=== PATIENT | male | born 1990 | race Caucasian/White ===

== ENCOUNTER 2019-09-23 01:12 | Day surgery (SDC) | payer OTHER, SELFPAY ==
[2019-09-20 15:14] VITALS: BMI 45.7
[2019-09-23 09:08] VITALS: BP 158/91; PULSE 107; RESP 20; TEMP 36.7; O2SAT 98
--- NOTE | 2019-09-23 09:24 | PM.IMHP ---
H&P: HPI History of Present Illness Chief complaint: rectal fissure, rectal pain Narrative: Bryant Sanchez is a 28 year old male presents today for colonoscopy. He reports 6 months of rectal burning, discomfort, and bright red rectal bleeding on the tissue with wiping. He saw Dr. Huang 12/2018 and had hemorrhoidal banding x 3 and evidence of anal fissure. He was given nifidepine and lidocaine, he noticed somewhat improvement. He reports he had a colonoscopy in 2018 but he is unsure, he denies any abnormalities or hx of polyps. He does struggle with constipation at baseline and takes miralax nightly, fiber and probiotic and helps somewhat. He has GERD, which is well controlled on omeprazole daily. He denies any nausea, vomiting, dysphagia, or odynophagia. Denies abnormal weight loss, fever or chills. Review of Systems Review of Systems: All systems reviewed & are unremarkable except as noted in HPI and below PMFSH Past Medical History Medical History (Updated 09/23/19 @ 09:31 by Montserrat Solis, HOUSEMAN) Asthma Chronic constipation Eczema Essential hypertension Fatty (change of) liver, not elsewhere classified Gastro-esophageal reflux History of anal fissures Mixed hyperlipidemia Obstructive sleep apnea (adult) (pediatric) Super obesity Type 2 diabetes mellitus with hyperglycemia Family History Family History (Updated 11/26/16 @ 15:34 by DOCTOR UNKNOWN) Mother Diabetes mellitus Family history of rheumatoid arthritis Family history of allergic disorder Father Hypertension Family history of colonic diverticulitis Other Family history of malignant neoplasm Family history of mental disorder Family history of pancreatic disease Social History Social History Smoking status: Never smoker Alcohol intake: never Meds Home Medications and Allergies Home Medications Medication Instructions Recorded Confirmed Type Benefiber Clear SF (dextrin) 2 tsp PO DAILY 09/20/19 09/20/19 History I B Clayton 1 cap/day PO DAILY 09/20/19 09/20/19 History albuterol sulfate [Proair 2 inh INHALATION Q4-6H PRN 09/20/19 09/23/19 History Digihaler] alogliptin 25 mg PO DAILY 09/20/19 09/20/19 History amitriptyline 10 mg PO HS 09/20/19 09/20/19 History amlodipine 5 mg PO DAILY 09/20/19 09/20/19 History benazepril 20 mg PO DAILY 09/20/19 09/20/19 History diphenhydramine HCl [Benadryl] 25 mg PO Q6H PRN 09/20/19 09/23/19 History triamcinolone acetonide 0.1 % TOPICAL DAILY 09/20/19 09/20/19 History Allergies Allergy/AdvReac Type Severity Reaction Status Date / Time Sulfa (Sulfonamide Allergy Intermediate RASH Verified 09/23/19 09:05 Antibiotics) Vital Signs Vital Signs - 24 hr 09/23/19 09:08 Temperature 36.7 C Pulse Rate 107 H Respiratory Rate 20 Blood Pressure 158/91 H Pulse Oximetry 98 Exam Const: General: cooperative, healthy appearing, comfortable, alert and awake Nutritional Appearance: average body habitus Orientation/consciousness: oriented to person, oriented to place, oriented to time and patient oriented x3 Limitations: no limitations HENMT: Head: normal to inspection and normocephalic Mouth: Yes Normal oral and palatal mucosa present and Yes moist mucous membranes Neck: Neck: normal visual inspection, supple and no JVD Carotids: no bruits Resp: Effort & Inspection: normal respiratory effort and no respiratory distress Auscultation: diminished lung sounds Cardio: Rate: regular rate Rhythm: regular rhythm Heart sounds: S1 normal heart sound present, S2 normal heart sound present, no gallops, no murmurs and no rubs GI: Inspection: Pannus present and obesity GI Palp: No abdominal tenderness and No No hepatosplenomegaly present Percussion: Yes normal to percussion Auscultation: normal bowel sounds Rectal Exam: deferred Skin: General skin exam: normal color Lesions: no lesions Rashes: no rashes Neuro: General: oriented to person, oriented to place, oriented to time, patient orient
[2019-09-23] MEDS: LACTATED RINGERS 1,000 ML 150 ML IV CONT (09:32)
[2019-09-23 09:34] LABS: Glucose Point of Care 148 (65-105)
--- NOTE | 2019-09-23 09:38 | WPDANESEPPF ---
Anes - Initial Pre Proc Eval Procedure: Operation Date: 09/23/19 09:30 Proposed Procedures p Colonoscopy - Loco Hernandez DO Date/Time: 09/23/19 09:38 Surgeon: Loco Hernandez DO Pre Op Diagnosis: rectal fissure, rectal pain Patient Data Age: 28 Gender: M Height: 5 ft 8 in Weight: 134.6 kg Last Vital Signs Temp 36.7 C 09/23/19 09:08 Pulse 107 H 09/23/19 09:08 Resp 20 09/23/19 09:08 BP 158/91 H 09/23/19 09:08 Pulse Ox 98 09/23/19 09:08 Allergies Allergy/AdvReac Type Severity Reaction Status Date / Time Sulfa (Sulfonamide Allergy Intermediate RASH Verified 09/23/19 09:05 Antibiotics) Home Medications Medication Instructions Recorded Confirmed Type Benefiber Clear SF (dextrin) 2 tsp PO DAILY 09/20/19 09/20/19 History I B Clayton 1 cap/day PO DAILY 09/20/19 09/20/19 History albuterol sulfate [Proair 2 inh INHALATION Q4-6H PRN 09/20/19 09/23/19 History Digihaler] alogliptin 25 mg PO DAILY 09/20/19 09/20/19 History amitriptyline 10 mg PO HS 09/20/19 09/20/19 History amlodipine 5 mg PO DAILY 09/20/19 09/20/19 History benazepril 20 mg PO DAILY 09/20/19 09/20/19 History diphenhydramine HCl [Benadryl] 25 mg PO Q6H PRN 09/20/19 09/23/19 History triamcinolone acetonide 0.1 % TOPICAL DAILY 09/20/19 09/20/19 History Laboratory Tests 09/23/19 09:30 POC Capillary Glucose 148 mg/dl H mg/dl (65-105) Patient hx anesthesia problems: none Family hx anesthesia problems: none PMFSH Past Medical History Medical History Asthma Chronic constipation Eczema Essential hypertension Fatty (change of) liver, not elsewhere classified Gastro-esophageal reflux History of anal fissures Mixed hyperlipidemia Obstructive sleep apnea (adult) (pediatric) Super obesity Type 2 diabetes mellitus with hyperglycemia Family History Family History Mother Diabetes mellitus Family history of rheumatoid arthritis Family history of allergic disorder Father Hypertension Family history of colonic diverticulitis Other Family history of malignant neoplasm Family history of mental disorder Family history of pancreatic disease Social History Social History Smoking status: Never smoker Alcohol intake: never Anes - Eval Final PreProcedure Day of Procedure 09/23/19 09:38 Patient weight: morbidly obese Heart: regular rate and rhythm Lungs: clear to auscultation Airway: Mallampati scale Neurological: alert and oriented Last oral intake: >/= 8 hours ASA classification: III Emergent: no Anesthetic plan: proceed Anesthesia type and monitoring: general GIVS Informed Consent: The patient's anesthetic plan and its attendant risks and benefits were discussed with the patient/family/POA. Questions were solicited and answers provided to the satisfaction of the patient/family/POA.
[2019-09-23 10:28] VITALS: BP 127/83; PULSE 94; RESP 20; O2SAT 98
[2019-09-23 10:38] VITALS: BP 133/90; PULSE 94; RESP 20; O2SAT 98
[2019-09-23 10:48] VITALS: BP 141/86; PULSE 93; RESP 20; O2SAT 98
== END 2019-09-23 11:15 | disposition home or self-care (01) ==
PROVIDERS: PCP Family Medicine; Visit Provider Internal Medicine Gastroenterology
PROC: 0DJD8ZZ Inspection of Lower Intestinal Tract, Via Natural or Artificial Opening Endoscopic (ICD-10-PCS; CPT 45378; principal; 2019-09-23 09:30)
DX: K60.0 Acute anal fissure (principal); K63.5 Polyp of colon; K64.8 Other hemorrhoids; K59.09 Other constipation; J45.909 Unspecified asthma, uncomplicated; I10 Essential (primary) hypertension; E11.9 Type 2 diabetes mellitus without complications; K21.9 Gastro-esophageal reflux disease without esophagitis; K76.0 Fatty (change of) liver, not elsewhere classified; E78.2 Mixed hyperlipidemia; G47.33 Obstructive sleep apnea (adult) (pediatric); E66.01 Morbid (severe) obesity due to excess calories; Z68.42 Body mass index [BMI] 45.0-49.9, adult
CPT/HCPCS: 45380; 88305; J2704; J7120

== ENCOUNTER 2020-01-31 11:26 | Outpatient (CLI) | payer OTHER, SELFPAY ==
[2020-01-31 12:03] LABS: Basophils Absolute Auto 0.05 K/mm3 (0.00-0.10); Basophils Percent Auto 0.7 % (0.0-1.0); Eosinophils Absolute Auto 0.26 K/mm3 (0.02-0.50); Eosinophils Percent Auto 3.4 % (1.0-6.0); Hematocrit 45.9 % (40.0-54.0); Hemoglobin 16.2 g/dL (14.0-18.0); Immature Granulocyte Absolute 0.05 K/mm3 (0.00-0.00); Immature Granulocyte Percent A 0.7 % (0.0-0.0); Lymphocytes Absolute Auto 1.81 K/mm3 (1.10-4.50); Mean Corpuscular HGB Conc 35.3 g/dL (32.0-36.0); Mean Corpuscular Hemoglobin 30.7 pg (27.0-31.0); Mean Corpuscular Volume 86.9 fL (78.0-102.0); Mean Platelet Volume 8.4 fl (8.7-11.0); Monocytes Absolute Auto 0.64 K/mm3 (0.10-0.90); Monocytes Percent Auto 8.5 % (2.0-11.0); Neutrophils Absolute Auto 4.7 K/mm3 (1.7-7.2); Neutrophils Percent Auto 62.7 % (50.0-70.0); Platelet Count Result 199 K/mm3 (150-420); Red Blood Count 5.28 M/mm3 (4.70-6.10); Red Cell Distribution Width 13.1 % (11.6-14.4); White Blood Count 7.5 K/mm3 (4.8-10.8)
[2020-01-31 12:12] LABS: Hemoglobin A1C 8.8 % (<5.7)
[2020-01-31 12:20] LABS: Creatinine Urine 157.28 mg/dL (40-278); Microalbumin Urine Random 4.8 mg/L
[2020-01-31 13:27] LABS: Alanine Aminotransferase 65 U/L (16-63); Alkaline Phosphatase 81 U/L (46-116); Anion Gap 10.9 mmol/L (7-16); Aspartate Amino Transferase 29 U/L (15-37); Bilirubin,Total 0.9 mg/dL (0.00-1.00); Blood Urea Nitrogen 12 mg/dL (7-18); Calcium 8.8 mg/dL (8.5-10.1); Carbon Dioxide 31 mmol/L (21-32); Chloride 99 mmol/L (98-108); Cholesterol 93 mg/dL (0-200); Estimated Glomerular Filt Rate > 60; Glucose 217 mg/dL (70-99); HDL Direct 27 mg/dL (40-60); LDL Cholesterol Calculated 4 mg/dL (<130); Osmolality Calculated 290 mOsm/kg (285-295); Potassium 3.9 mmol/L (3.5-5.1); Sodium 137 mmol/L (136-145); Thyroid Stimulating Hormone 2.89 uIU/mL (0.36-3.74); Total Protein 7.3 g/dL (6.4-8.2); Triglycerides 312 mg/dL (0-150); Vitamin B12 501 pg/mL (193-986)
[2020-02-02 19:58] LABS: Vitamin D 25 Hydroxy 18 ng/mL (30-100)
== END 2020-01-31 11:27 | disposition home or self-care (01) ==
PROVIDERS: PCP Family Medicine; Visit Provider Family Medicine
DX: K21.9 Gastro-esophageal reflux disease without esophagitis (principal); G47.33 Obstructive sleep apnea (adult) (pediatric); E11.65 Type 2 diabetes mellitus with hyperglycemia
CPT/HCPCS: 36415; 80053; 80061; 82043; 82306; 82607; 83036; 84443; 85025

== ENCOUNTER 2020-05-31 13:37 | Outpatient (CLI) | payer OTHER, SELFPAY ==
[2020-05-31 14:02] LABS: Basophils Absolute Auto 0.05 K/mm3 (0.00-0.10); Basophils Percent Auto 0.7 % (0.0-1.0); Eosinophils Absolute Auto 0.19 K/mm3 (0.02-0.50); Eosinophils Percent Auto 2.6 % (1.0-6.0); Hematocrit 50.9 % (40.0-54.0); Hemoglobin 17.1 g/dL (14.0-18.0); Immature Granulocyte Absolute 0.03 K/mm3 (0.00-0.00); Immature Granulocyte Percent A 0.4 % (0.0-0.0); Lymphocytes Absolute Auto 1.59 K/mm3 (1.10-4.50); Lymphocytes Percent Auto 21.9 % (18.0-42.0); Mean Corpuscular HGB Conc 33.6 g/dL (32.0-36.0); Mean Corpuscular Hemoglobin 29.7 pg (27.0-31.0); Mean Corpuscular Volume 88.4 fL (78.0-102.0); Mean Platelet Volume 8.1 fl (8.7-11.0); Monocytes Absolute Auto 0.57 K/mm3 (0.10-0.90); Monocytes Percent Auto 7.9 % (2.0-11.0); Neutrophils Absolute Auto 4.8 K/mm3 (1.7-7.2); Neutrophils Percent Auto 66.5 % (50.0-70.0); Platelet Count Result 207 K/mm3 (150-420); Red Blood Count 5.76 M/mm3 (4.70-6.10); Red Cell Distribution Width 12.8 % (11.6-14.4); White Blood Count 7.3 K/mm3 (4.8-10.8)
[2020-05-31 14:13] LABS: Creatinine Urine 169.54 mg/dL (40-278); Hemoglobin A1C 5.9 % (<5.7); MALB Creatinine Ratio 7.6 mg/g (0-30); Microalbumin Urine Random < 13.0 mg/L
[2020-05-31 15:04] LABS: Alanine Aminotransferase 51 U/L (16-63); Albumin Level 4.3 g/dL (3.4-5.0); Alkaline Phosphatase 76 U/L (46-116); Anion Gap 7 mmol/L (8-16); Aspartate Amino Transferase 17 U/L (15-37); Bilirubin,Total 0.9 mg/dL (0.00-1.00); Blood Urea Nitrogen 10 mg/dL (7-18); Calcium 8.9 mg/dL (8.5-10.1); Carbon Dioxide 32 mmol/L (21-32); Chloride 101 mmol/L (98-108); Cholesterol 135 mg/dL (0-200); Creatine Kinase 80 U/L (39-308); Estimated Glomerular Filt Rate > 60; Glucose 119 mg/dL (70-99); HDL Direct 29 mg/dL (40-60); LDL Cholesterol Calculated 67 mg/dL (<130); Magnesium 2.5 mg/dL (1.8-2.4); Osmolality Calculated 290 mOsm/kg (285-295); Sodium 140 mmol/L (136-145); Thyroid Stimulating Hormone 1.26 uIU/mL (0.36-3.74); Total Protein 7.6 g/dL (6.4-8.2); Triglycerides 193 mg/dL (0-150); Vitamin B12 478 pg/mL (193-986)
[2020-06-03 12:21] LABS: Vitamin D 25 Hydroxy 19 ng/mL (30-100)
== END 2020-05-31 13:38 | disposition home or self-care (01) ==
LOC: CHSLAB 13:50
PROVIDERS: PCP Family Medicine; Visit Provider Family Medicine
DX: R25.2 Cramp and spasm (principal); Z79.899 Other long term (current) drug therapy; E11.65 Type 2 diabetes mellitus with hyperglycemia; E78.2 Mixed hyperlipidemia; E66.9 Obesity, unspecified; K59.09 Other constipation
CPT/HCPCS: 36415; 80053; 80061; 82043; 82306; 82550; 82607; 83036; 83735; 84443; 85025

== ENCOUNTER 2020-11-11 14:15 | Outpatient (CLI) | payer OTHER, SELFPAY ==
[2020-11-11 14:43] LABS: MALB Creatinine Ratio 7.5 mg/g (0-30); Microalbumin Urine Random 16.8 mg/L
[2020-11-11 14:45] LABS: Hemoglobin A1C 5.5 % (<5.7)
[2020-11-11 15:30] LABS: Alanine Aminotransferase 53 U/L (16-63); Albumin Level 4.4 g/dL (3.4-5.0); Alkaline Phosphatase 71 U/L (46-116); Anion Gap 8 mmol/L (8-16); Aspartate Amino Transferase 21 U/L (15-37); Blood Urea Nitrogen 13 mg/dL (7-18); Calcium 8.6 mg/dL (8.5-10.1); Carbon Dioxide 31 mmol/L (21-32); Chloride 100 mmol/L (98-108); Cholesterol 140 mg/dL (0-200); Estimated Glomerular Filt Rate > 60; Glucose 110 mg/dL (70-99); HDL Direct 29 mg/dL (40-60); LDL Cholesterol Calculated 70 mg/dL (<130); Osmolality Calculated 289 mOsm/kg (285-295); Potassium 3.9 mmol/L (3.5-5.1); Sodium 139 mmol/L (136-145); Total Protein 8.1 g/dL (6.4-8.2); Triglycerides 204 mg/dL (0-150); Vitamin B12 533 pg/mL (193-986)
== END 2020-11-11 14:16 | disposition home or self-care (01) ==
LOC: CHSLAB 14:17
PROVIDERS: PCP Family Medicine; Visit Provider Family Medicine
DX: E11.65 Type 2 diabetes mellitus with hyperglycemia (principal); E78.2 Mixed hyperlipidemia; R89.9 Unspecified abnormal finding in specimens from other organs, systems and tissues; Z79.899 Other long term (current) drug therapy
CPT/HCPCS: 36415; 80053; 80061; 82043; 82607; 83036; 84443

== ENCOUNTER 2020-12-04 10:15 | Outpatient (CLI) | payer OTHER, SELFPAY | END 2020-12-04 10:16 | disposition home or self-care (01) | LOC: ANHCOVIDVC 10:15 | PROVIDERS: PCP Family Medicine | DX: Z23 Encounter for immunization (principal) | CPT/HCPCS: 0001A; 91300 ==

== ENCOUNTER 2020-12-26 10:15 | Outpatient (CLI) | payer OTHER, SELFPAY | END 2020-12-26 10:16 | disposition home or self-care (01) | LOC: ANHCOVIDVC 10:16 | PROVIDERS: PCP Family Medicine | DX: Z23 Encounter for immunization (principal) | CPT/HCPCS: 0002A; 91300 ==

== ENCOUNTER 2021-07-14 14:38 | Outpatient (CLI) | payer OTHER, SELFPAY ==
[2021-07-14 15:10] LABS: Basophils Absolute Auto 0.04 K/mm3 (0.00-0.10); Basophils Percent Auto 0.6 % (0.0-1.0); Eosinophils Absolute Auto 0.22 K/mm3 (0.02-0.50); Eosinophils Percent Auto 3.1 % (1.0-6.0); Hematocrit 50.8 % (40.0-54.0); Hemoglobin 17.9 g/dL (14.0-18.0); Immature Granulocyte Absolute 0.04 K/mm3 (0.00-0.00); Immature Granulocyte Percent A 0.6 % (0.0-0.0); Lymphocytes Absolute Auto 1.59 K/mm3 (1.10-4.50); Lymphocytes Percent Auto 22.2 % (18.0-42.0); Mean Corpuscular HGB Conc 35.2 g/dL (32.0-36.0); Mean Corpuscular Hemoglobin 31.1 pg (27.0-31.0); Mean Corpuscular Volume 88.3 fL (78.0-102.0); Mean Platelet Volume 8.4 fl (8.7-11.0); Monocytes Absolute Auto 0.65 K/mm3 (0.10-0.90); Monocytes Percent Auto 9.1 % (2.0-11.0); Neutrophils Absolute Auto 4.6 K/mm3 (1.7-7.2); Neutrophils Percent Auto 64.4 % (50.0-70.0); Platelet Count Result 199 K/mm3 (150-420); Red Blood Count 5.75 M/mm3 (4.70-6.10); Red Cell Distribution Width 13.1 % (11.6-14.4); White Blood Count 7.2 K/mm3 (4.8-10.8)
[2021-07-14 15:25] LABS: Alanine Aminotransferase 65 U/L (16-63); Albumin Level 4.2 g/dL (3.4-5.0); Alkaline Phosphatase 77 U/L (46-116); Anion Gap 11 mmol/L (8-16); Aspartate Amino Transferase 27 U/L (15-37); Blood Urea Nitrogen 11 mg/dL (7-18); Calcium 8.7 mg/dL (8.5-10.1); Carbon Dioxide 29 mmol/L (21-32); Chloride 100 mmol/L (98-108); Cholesterol 132 mg/dL (0-200); Estimated Glomerular Filt Rate > 60; Glucose 126 mg/dL (70-99); HDL Direct 30 mg/dL (40-60); LDL Cholesterol Calculated 64 mg/dL (<130); Osmolality Calculated 291 mOsm/kg (285-295); Potassium 4.2 mmol/L (3.5-5.1); Sodium 140 mmol/L (136-145); Total Protein 7.3 g/dL (6.4-8.2); Triglycerides 191 mg/dL (0-150)
[2021-07-14 16:25] LABS: MALB Creatinine Ratio 7.8 mg/g (0-30); Microalbumin Urine Random < 13.0 mg/L
== END 2021-07-14 14:39 | disposition home or self-care (01) ==
LOC: CHSLAB 14:40
PROVIDERS: PCP Family Medicine; Visit Provider Physician Assistant Medical
DX: E11.9 Type 2 diabetes mellitus without complications (principal); E11.65 Type 2 diabetes mellitus with hyperglycemia; E66.9 Obesity, unspecified; I10 Essential (primary) hypertension; E78.2 Mixed hyperlipidemia
CPT/HCPCS: 36415; 80053; 80061; 82043; 83036; 84443; 85025

== ENCOUNTER 2021-12-18 14:25 | Outpatient (CLI) | payer OTHER, SELFPAY ==
[2021-12-18 14:49] LABS: Hemoglobin A1C 6.1 % (<5.7)
[2021-12-18 14:55] LABS: Alanine Aminotransferase 54 U/L (16-63); Alkaline Phosphatase 72 U/L (46-116); Anion Gap 5 mmol/L (8-16); Aspartate Amino Transferase 24 U/L (15-37); Bilirubin,Total 0.9 mg/dL (0.00-1.00); Blood Urea Nitrogen 14 mg/dL (7-18); Calcium 8.7 mg/dL (8.5-10.1); Carbon Dioxide 31 mmol/L (21-32); Chloride 101 mmol/L (98-108); Cholesterol 119 mg/dL (0-200); Estimated Glomerular Filt Rate > 60; Glucose 136 mg/dL (70-99); HDL Direct 30 mg/dL (40-60); LDL Cholesterol Calculated 41 mg/dL (<130); Osmolality Calculated 286 mOsm/kg (285-295); Potassium 3.9 mmol/L (3.5-5.1); Sodium 137 mmol/L (136-145); Total Protein 7.5 g/dL (6.4-8.2); Triglycerides 240 mg/dL (0-150)
== END 2021-12-18 14:26 | disposition home or self-care (01) ==
LOC: CHSLAB 14:27
PROVIDERS: PCP Family Medicine; Visit Provider Family Medicine
DX: E11.65 Type 2 diabetes mellitus with hyperglycemia (principal); E66.9 Obesity, unspecified
CPT/HCPCS: 36415; 80053; 80061; 83036

== ENCOUNTER 2021-12-28 10:52 | Outpatient (CLI) | payer OTHER, SELFPAY ==
--- NOTE | ~2021-12-28 | US_ITS ---
EXAMINATION: US abdomen complete DATE: 12/28/2021 11:23 INDICATION: Hepatic steatosis. TECHNIQUE: Multiple grayscale and Doppler ultrasound images of the abdomen were obtained. COMPARISON: Ultrasound 04/23/2016 FINDINGS: There is splenomegaly measuring 16.5 cm. The visualized portions of the head, body, and ag l of the pancreas are normal. There is diffuse hepatic steatosis. No liver surface nodularity. There is normal flow in main portal vein. The kidneys are normal in size. The gallbladder is normal in size . No gallstones or gallbladder wall thickening. There is no sonographic Anna sign. The common duct is normal and measures 3 mm. The inferior vena cava is obscured by bowel gas. The aorta is normal in caliber. IMPRESSION: 1. Diffuse hepatic steatosis. 2. Moderate splenomegaly. Reviewed, dictated and finalized at location A.
== END 2021-12-28 10:53 | disposition home or self-care (01) ==
LOC: CHSIMG 10:55
PROVIDERS: PCP Family Medicine; Visit Provider Physician Assistant Medical
DX: K76.0 Fatty (change of) liver, not elsewhere classified (principal)
CPT/HCPCS: 76700

== ENCOUNTER 2022-01-10 16:40 | Outpatient (CLI) | payer OTHER, SELFPAY ==
[2022-01-10 16:55] LABS: Basophils Absolute Auto 0.05 K/mm3 (0.00-0.10); Basophils Percent Auto 0.7 % (0.0-1.0); Eosinophils Absolute Auto 0.27 K/mm3 (0.02-0.50); Eosinophils Percent Auto 3.7 % (1.0-6.0); Hematocrit 49.3 % (40.0-54.0); Immature Granulocyte Absolute 0.03 K/mm3 (0.00-0.00); Immature Granulocyte Percent A 0.4 % (0.0-0.0); Lymphocytes Percent Auto 21.7 % (18.0-42.0); Mean Corpuscular HGB Conc 34.5 g/dL (32.0-36.0); Mean Corpuscular Hemoglobin 31.4 pg (27.0-31.0); Mean Platelet Volume 8.5 fl (8.7-11.0); Monocytes Absolute Auto 0.66 K/mm3 (0.10-0.90); Monocytes Percent Auto 8.9 % (2.0-11.0); Neutrophils Absolute Auto 4.8 K/mm3 (1.7-7.2); Neutrophils Percent Auto 64.6 % (50.0-70.0); Nucleated Red Blood Cells Absolute Auto 0.02 K/mm3 (0.00-0.00); Nucleated Red Blood Cells Perc 0.3 % (0-0.0); Platelet Count Result 184 K/mm3 (150-420); Red Blood Count 5.42 M/mm3 (4.70-6.10); Red Cell Distribution Width 13.2 % (11.6-14.4); White Blood Count 7.4 K/mm3 (4.8-10.8)
[2022-01-15 12:16] LABS: EBV Nuclear Ab Antibody >600.00 U/mL (<18.00); EBV Nuclear Ab Interpretation Past; EBV Virus Capsid Ag IgG Ab >750.00 U/mL (<18.00); EBV Virus Capsid Ag IgM Ab <36.00 U/mL (<36.00)
[2022-02-13 12:09] LABS: Gliadin AB, IgG <1.0 U/mL (<15.0)
[2022-02-14 10:40] LABS: TTG IGA AB <1.0 U/mL (<15.0)
== END 2022-01-10 16:41 | disposition home or self-care (01) ==
LOC: CHSLAB 16:42
PROVIDERS: PCP Family Medicine; Visit Provider Family Medicine
DX: R16.1 Splenomegaly, not elsewhere classified (principal); J30.9 Allergic rhinitis, unspecified; K58.1 Irritable bowel syndrome with constipation
CPT/HCPCS: 36415; 83516; 85025; 86255; 86664; 86665

== ENCOUNTER 2022-04-17 14:56 | Outpatient (CLI) | payer OTHER, SELFPAY ==
--- NOTE | ~2022-04-17 | CT_ITS ---
EXAMINATION: CT abdomen pelvis w con DATE: 04/17/2022 15:34 INDICATION: Left lower quadrant abdominal pain TECHNIQUE: Computed tomography (CT) of the abdomen and pelvis was performed with 100 CC Omnipaque 350 intravenous contrast. Automated exposure control and iterative reconstruction technique were employe d. Exam dose: 1671.65 mGy-cm total exam DLP. COMPARISON: 12/28/2021 complete abdominal ultrasound examination FINDINGS: The lung bases are clear of infiltrate or consolidation. Normal heart size. No pericardial or pleural effusion. Diffuse hepatic steatosis. No hepatic space-occupying mass lesion. The gallbladder is unremarkable, w ithout wall thickening or pericholecystic fluid or fat stranding. No bile duct or pancreatic duct dil atation. No pancreatic mass lesion or calcification. There is mild splenomegaly, with vertical dimens ion of approximately 15.2 cm. Normal morphology of the adrenal glands. No renal mass lesion or urinary tract calculus or hydroureteronephrosis. The urinary bladder is unrem arkable. No bowel obstruction, bowel wall thickening, pneumatosis or intraperitoneal free air. Normal appendix . Normal caliber of the abdominal aorta. No intraperitoneal or retroperitoneal or pelvic mass lesion or adenopathy or ascites. Small fat-containing umbilical hernia. No suspicious osteolytic or osteoblastic lesions. IMPRESSION: Hepatic steatosis Splenomegaly Reviewed, dictated and finalized at [facility]. Reviewed, dictated and finalized at location B.
[2022-04-17 15:25] LABS: Estimated Glomerular Filt Rate > 60
== END 2022-04-17 14:57 | disposition home or self-care (01) ==
LOC: ANHIMG 15:02
PROVIDERS: PCP Family Medicine; Visit Provider Physician Assistant Medical
DX: R10.32 Left lower quadrant pain (principal); K76.0 Fatty (change of) liver, not elsewhere classified; R16.1 Splenomegaly, not elsewhere classified
CPT/HCPCS: 74177; Q9967

== ENCOUNTER 2022-06-27 15:05 | Outpatient (CLI) | payer OTHER, SELFPAY ==
[2022-07-05 19:09] LABS: Calprotectin, Stool 382 mcg/g
== END 2022-06-27 15:06 | disposition home or self-care (01) ==
LOC: ANHLAB 15:08
PROVIDERS: PCP Family Medicine; Visit Provider Family Medicine
DX: R19.4 Change in bowel habit (principal)
CPT/HCPCS: 83993

== ENCOUNTER 2022-12-05 14:36 | Outpatient (CLI) | payer OTHER, SELFPAY ==
[2022-12-05 14:58] LABS: Basophils Absolute Auto 0.04 K/mm3 (0.00-0.10); Basophils Percent Auto 0.6 % (0.0-1.0); Eosinophils Absolute Auto 0.24 K/mm3 (0.02-0.50); Eosinophils Percent Auto 3.3 % (1.0-6.0); Hemoglobin 16.9 g/dL (14.0-18.0); Immature Granulocyte Absolute 0.03 K/mm3 (0.00-0.00); Immature Granulocyte Percent A 0.4 % (0.0-0.0); Lymphocytes Absolute Auto 1.67 K/mm3 (1.10-4.50); Lymphocytes Percent Auto 23.1 % (18.0-42.0); Mean Corpuscular HGB Conc 35.2 g/dL (32.0-36.0); Mean Corpuscular Hemoglobin 31.2 pg (27.0-31.0); Mean Corpuscular Volume 88.7 fL (78.0-102.0); Mean Platelet Volume 8.2 fl (8.7-11.0); Monocytes Absolute Auto 0.68 K/mm3 (0.10-0.90); Monocytes Percent Auto 9.4 % (2.0-11.0); Neutrophils Absolute Auto 4.6 K/mm3 (1.7-7.2); Neutrophils Percent Auto 63.2 % (50.0-70.0); Platelet Count Result 186 K/mm3 (150-420); Red Blood Count 5.41 M/mm3 (4.70-6.10); Red Cell Distribution Width 13.2 % (11.6-14.4); White Blood Count 7.2 K/mm3 (4.8-10.8)
[2022-12-05 15:11] LABS: Hemoglobin A1C 6.8 % (<5.7)
[2022-12-05 16:09] LABS: Creatinine Urine 136.96 mg/dL (40-278); MALB Creatinine Ratio 9.4 mg/g (0-30); Microalbumin Urine Random < 13.0 mg/L
[2022-12-05 16:25] LABS: Alanine Aminotransferase 51 U/L (16-63); Albumin Level 4.1 g/dL (3.4-5.0); Alkaline Phosphatase 73 U/L (46-116); Anion Gap 10 mmol/L (8-16); Aspartate Amino Transferase 25 U/L (15-37); Bilirubin,Total 0.8 mg/dL (0.00-1.00); Blood Urea Nitrogen 12 mg/dL (7-18); Calcium 8.8 mg/dL (8.5-10.1); Carbon Dioxide 30 mmol/L (21-32); Chloride 102 mmol/L (98-108); Cholesterol 130 mg/dL (0-200); Estimated Glomerular Filt Rate > 60; Ferritin 110 ng/mL (26-388); Glucose 159 mg/dL (70-99); HDL Direct 30 mg/dL (40-60); LDL Cholesterol Calculated 36 mg/dL (<130); Osmolality Calculated 296 mOsm/kg (285-295); Potassium 4.1 mmol/L (3.5-5.1); Sodium 142 mmol/L (136-145); Total Protein 7.7 g/dL (6.4-8.2); Triglycerides 322 mg/dL (0-150); Vitamin B12 488 pg/mL (193-986)
[2022-12-11 13:41] LABS: Vitamin D 25 Hydroxy 26 ng/mL (30-100)
== END 2022-12-05 14:37 | disposition home or self-care (01) ==
LOC: CHSLAB 14:38
PROVIDERS: PCP Family Medicine; Visit Provider Family Medicine
DX: E11.9 Type 2 diabetes mellitus without complications (principal); Z79.899 Other long term (current) drug therapy; K21.9 Gastro-esophageal reflux disease without esophagitis
CPT/HCPCS: 36415; 80053; 80061; 82043; 82306; 82607; 82728; 83036; 85025

== ENCOUNTER 2022-12-31 15:00 | Outpatient (CLI) | payer OTHER, SELFPAY ==
--- NOTE | ~2022-12-31 | CT_ITS ---
EXAMINATION: CT sinus wo con DATE: 12/31/2022 15:46 INDICATION: Chronic sinusitis TECHNIQUE: Computed tomography (CT) of the paranasal sinuses was performed without intravenous contra st. The dose-length product was 256.54 mGy-cm. Automated exposure control and iterative reconstructio n technique were employed. COMPARISON: None FINDINGS: No significant mucosal thickening or air-fluid levels. No air-fluid levels. No significant nasal septal deviation. Mastoids are pneumatized. No depressed skull fractures. IMPRESSION: 1. No significant sinus disease. Reviewed, dictated and finalized at location L.
== END 2022-12-31 15:01 | disposition home or self-care (01) ==
LOC: CHSIMG 15:01
PROVIDERS: PCP Family Medicine; Visit Provider Otolaryngology
DX: J32.9 Chronic sinusitis, unspecified (principal); R09.82 Postnasal drip
CPT/HCPCS: 70486

== ENCOUNTER 2023-02-25 14:21 | Outpatient (CLI) | payer OTHER, SELFPAY ==
--- NOTE | ~2023-02-25 | US_ITS ---
EXAMINATION: US abdomen complete DATE: 02/25/2023 14:50 INDICATION: Hepatic steatosis TECHNIQUE: Multiple grayscale and Doppler ultrasound images of the abdomen were obtained. COMPARISON: 12/28/2021 FINDINGS: The head and body of the pancreas are normal. The pancreatic tail is obscured by bowel gas. The liver demonstrates increased echogenicity, heterogenous echotexture, and decreased through trans mission. No surface nodularity. Normal hepatopetal flow in the main portal vein. The gallbladder is n ormal with no abnormal wall thickening, pericholecystic fluid or stones. The normal common bile duct measures 4 mm. There was no sonographic Anna sign. The visualized portions of the aorta and inferio r vena cava are normal. There is chronic mild enlargement of the spleen which measures 14.1 cm. The right kidney measures 13. 6 x 5.2 x 5.4 cm. The left kidney measures 14.0 x 5.4 x 6.7 cm. The kidneys demonstrate normal parenc hymal echogenicity. There is no hydronephrosis. IMPRESSION: 1. Diffuse hepatic steatosis. 2. Chronic mild splenomegaly. Reviewed, dictated and finalized at location L.
== END 2023-02-25 14:22 | disposition home or self-care (01) ==
LOC: CHSIMG 14:26
PROVIDERS: PCP Family Medicine
DX: K76.0 Fatty (change of) liver, not elsewhere classified (principal); R16.1 Splenomegaly, not elsewhere classified
CPT/HCPCS: 76700

== ENCOUNTER 2023-04-02 17:39 | Outpatient (CLI) | payer OTHER, SELFPAY ==
[2023-04-07 14:21] LABS: H pylori Ag Stool Not Detected
== END 2023-04-02 17:40 | disposition home or self-care (01) ==
LOC: CHSLAB 17:43
PROVIDERS: PCP Family Medicine
DX: K21.9 Gastro-esophageal reflux disease without esophagitis (principal)
CPT/HCPCS: 87338

== ENCOUNTER 2023-04-28 14:08 | Outpatient (CLI) | payer OTHER, SELFPAY ==
--- NOTE | ~2023-04-28 | NM_ITS ---
EXAMINATION: NM hepatobiliary w pharm DATE: 04/28/2023 16:08 INDICATION: Gastroesophageal reflux disease. Irritable bowel. COMPARISON: CT abdomen and pelvis 04/17/2022 TECHNIQUE: 5.5 mCi Tc-99m mebrofenin (Choletec) was administered intravenously. Scintigraphic images of the abdomen were obtained for one hour. Then, 2.5 mcg sincalide (Kinevac) IV was administered, an d imaging was continued for 30 minutes. FINDINGS: There is normal clearance of radiotracer from the blood pool. There is homogeneous tracer u ptake by the liver. Activity progresses to the bowel and gallbladder. Gallbladder ejection fraction (GBEF) was 88%. Note that most patients with gallbladder dysfunction have GBEF < 35%, which overlaps with the broad normal range of 10-90%. IMPRESSION: 1. Normal hepatobiliary scintigraphy. Reviewed, dictated and finalized at location A.
== END 2023-04-28 14:09 | disposition home or self-care (01) ==
LOC: CHSIMG 14:10
PROVIDERS: PCP Family Medicine
DX: K21.9 Gastro-esophageal reflux disease without esophagitis (principal); K58.1 Irritable bowel syndrome with constipation
CPT/HCPCS: 78227; A9537; J2805

== ENCOUNTER 2023-07-26 15:14 | Outpatient (CLI) | payer OTHER, SELFPAY ==
[2023-07-26 15:50] LABS: Creatinine Urine 78.15 mg/dL (40-278); MALB Creatinine Ratio 16.6 mg/g (0-30); Microalbumin Urine Random < 13.0 mg/L
[2023-07-26 15:52] LABS: Hemoglobin A1C 7.6 % (<5.7)
[2023-07-26 16:27] LABS: Alanine Aminotransferase 51 U/L (16-63); Albumin Level 4.2 g/dL (3.4-5.0); Alkaline Phosphatase 74 U/L (46-116); Anion Gap 8 mmol/L (8-16); Aspartate Amino Transferase 19 U/L (15-37); Bilirubin,Total 0.8 mg/dL (0.00-1.00); Blood Urea Nitrogen 11 mg/dL (7-18); Calcium 8.8 mg/dL (8.5-10.1); Carbon Dioxide 30 mmol/L (21-32); Chloride 98 mmol/L (98-108); Cholesterol 143 mg/dL (0-200); Estimated Glomerular Filt Rate > 60; Glucose 192 mg/dL (70-99); HDL Direct 31 mg/dL (40-60); LDL Cholesterol Calculated 13 mg/dL (<130); Osmolality Calculated 286 mOsm/kg (285-295); Potassium 3.8 mmol/L (3.5-5.1); Sodium 136 mmol/L (136-145); Total Protein 7.1 g/dL (6.4-8.2); Triglycerides 495 mg/dL (0-150)
[2023-07-26 16:40] LABS: LDL Cholesterol Direct 56 mg/dL (0-130)
== END 2023-07-26 15:15 | disposition home or self-care (01) ==
PROVIDERS: PCP Family Medicine; Visit Provider Family Medicine
DX: E11.9 Type 2 diabetes mellitus without complications (principal)
CPT/HCPCS: 36415; 80053; 80061; 82043; 83036; 83721

== ENCOUNTER 2023-11-19 17:30 | Emergency (ER) | payer OTHER, SELFPAY ==
[2023-11-19 17:34] VITALS: BP 137/91; PULSE 67; RESP 18; TEMP 37; O2SAT 98
--- NOTE | 2023-11-19 17:38 | ED.MALEGU ---
HPI - Male Genitourinary General Chief complaint: Urogenital-Male Stated complaint: urogenital male Time Seen by Provider: 11/19/23 17:38 Source: patient Mode of arrival: ambulatory Limitations: no limitations History of Present Illness HPI Narrative: 32-year-old male with a history of obesity, TITO, fatty liver,hypertension, diabetes mellitus, dyslipidemia, asthma, eczema, with recent upper respiratory tract infection for which he was treated with doxycycline and prednisone presents to the ER with a 2 month history of -- right testicular pain. No history of trauma. -- Dysuria. No hematuria. He has a history of prostatitis. No abdominal pain. No nausea / vomiting. No chest pain or shortness of breath. MD Complaint: testicle pain Onset (ago): month(s) ( 2 months) Duration: intermittent Location: right testicle Radiation: penis Severity: mild Quality: aching Relieving factors: none Exacerbating factors: none Associated symptoms: Reports dysuria Related Data Sexually active: No Home Medications Medication Instructions Recorded Confirmed amitriptyline 10 mg tablet 10 mg PO HS 09/20/19 11/19/23 amlodipine 5 mg tablet 5 mg PO DAILY 11/19/23 11/19/23 cholecalciferol (vitamin D3) 250 500 mcg PO WEEKLY 11/19/23 11/19/23 mcg (10,000 unit) capsule linagliptin 5 mg tablet (Tradjenta) 5 mg PO DAILY 11/19/23 11/19/23 omeprazole 20 mg capsule,delayed 20 mg PO DAILY 11/19/23 11/19/23 release Allergies Allergy/AdvReac Type Severity Reaction Status Date / Time Sulfa (Sulfonamide Allergy Intermediate RASH Verified 11/19/23 17:45 Antibiotics) metformin AdvReac severe gi Verified 11/19/23 17:45 upset pitavastatin [From Livalo] AdvReac leg cramps Verified 11/19/23 17:45 pravastatin AdvReac muscle Verified 11/19/23 17:45 cramping, gi upset simvastatin AdvReac muscle Verified 11/19/23 17:45 cramping Review of Systems Review of Systems: All systems reviewed & are unremarkable except as noted in HPI and below Constitutional: Constitutional: Reports as per HPI Eyes: Eyes: Reports as per HPI ENT: Reports system reviewed and no additional complaints, except as documented Cardiovascular: Cardiovascular: Reports as per HPI and Reports no additional cardiovascular complaints Respiratory: Respiratory: Reports as per HPI and Reports no additional respiratory complaints Gastrointestinal: Gastrointestinal: Reports as per HPI and Reports no additional gastrointestinal complaints Genitourinary: Genitourinary: Reports dysuria Musculoskeletal: Musculoskeletal: Reports no additional musculoskeletal complaints and Reports as per HPI Integumentary/Breasts: Skin/Breast: Reports system reviewed and no additional complaints, except as docu and Reports as per HPI Neurologic: Reports system reviewed and no additional complaints, except as documented and Reports as per HPI Psychiatric: Psychiatric: Reports no additional psychiatric complaints and Reports as per HPI Endocrine: Endocrine: Reports no additional endocrine complaints and Reports as per HPI Hematologic/Lymphatic: Hematologic/Lymphatic: Reports no additional hematologic/lymphatic complaints and Reports as per HPI Allergic/Immunologic: Allergic/Immunologic: Reports no additional allergic/immunologic complaints and Reports as per HPI PMFSH Past Medical History Medical History Asthma Chronic constipation Eczema Essential hypertension Fatty (change of) liver, not elsewhere classified 7.11.23 liver us fatty liver, chronic splenomegaly Gastro-esophageal reflux History of anal fissures Mixed hyperlipidemia Obstructive sleep apnea (adult) (pediatric) Pilonidal cyst Plantar fascial fibromatosis Prostatitis, acute Surgical History Surgical History Hx of colonoscopy 2.6.20 hyperplastic polyp, acute anal fissure, internal hemmie
[2023-11-19 18:32] LABS: Hematocrit 42.9 % (40.0-54.0); Hemoglobin 14.9 g/dL (14.0-18.0); Mean Corpuscular HGB Conc 34.7 g/dL (32-36); Mean Corpuscular Hemoglobin 30.8 pg (27.0-31.0); Mean Corpuscular Volume 88.6 fL (78.0-102.0); Mean Platelet Volume 8.3 fl (8.7-11.0); Platelet Count Result 142 K/mm3 (150-420); Red Blood Count 4.84 M/mm3 (4.70-6.10); Red Cell Distribution Width 14.2 % (11.6-14.4)
[2023-11-19 18:44] LABS: Appearance Urine Clear (Clear); Bilirubin Urine Negative (Negative); Blood Urine Negative (Negative); Color Urine Yellow (Yellow); Glucose Urine UA 3+ (Negative); Ketones Urine Negative (Negative); Leukocyte Esterase Ur Negative LEU/UL (Negative); Nitrate Urine Negative (Negative); Protein Urine Negative (Negative); Urobilinogen Urine 0.2 mg/dL (0.2-1.0)
[2023-11-19 18:54] LABS: Alanine Aminotransferase 87 U/L (16-63); Albumin Level 3.9 g/dL (3.4-5.0); Alkaline Phosphatase 65 U/L (46-116); Anion Gap 10 mmol/L (4-12); Aspartate Amino Transferase 38 U/L (15-37); Bilirubin,Total 1.5 mg/dL (0.00-1.00); Blood Urea Nitrogen 11 mg/dL (7-18); Calcium 8.8 mg/dL (8.5-10.1); Carbon Dioxide 28 mmol/L (21-32); Chloride 101 mmol/L (98-108); Estimated CRCL calculation 172 ml/min; Estimated Glomerular Filt Rate > 60; Glucose 238 mg/dL (70-99); Lipase 61 U/L (16-77); Osmolality Calculated 295 mOsm/kg (285-295); Potassium 3.8 mmol/L (3.5-5.1); Sodium 139 mmol/L (136-145)
[2023-11-19 18:55] LABS: Add Urine Microscopic? YES; Bacteria Urine Trace /hpf; RBC Urine 0-2 /hpf (0-2); Squamous Epithelial Cell Urine Rare /hpf (Few); WBC Urine 0-3 /hpf (0-3)
[2023-11-19 18:57] LABS: Lactic Acid Reflex 1.6 mmol/L (0.4-2.0); Troponin I < 4.0 ng/L (0.00-60.4)
[2023-11-19 18:59] LABS: Neutrophils Percent Manual 53 % (46-73); Total Cells Counted 100
[2023-11-19 19:00] LABS: Band Neutrophils Percent 1 % (0-6); Basophils Percent Manual 0 % (0-1); Eosinophils Absolute Manual 0.12 K/mm3 (0.02-0.50); Eosinophils Percent Manual 2 % (1-6); Lymphocytes Percent Manual 35 % (18-44); Metamyelocytes Percent 1 %; Monocytes Absolute Manual 0.48 K/mm3 (0.1-0.90); Monocytes Percent Manual 8 % (3-9); Neutrophils Absolute Manual 3.24 K/mm3 (1.3-6.7); Platelet Estimate Adequate (Adequate)
[2023-11-19 19:01] LABS: Other Cell Type ATYPICAL LYMPHS
--- NOTE | 2023-11-19 19:09 | PC.NURSE ---
patient report received from BENJA Alexander for continuation of care by crosstie inspector.
--- NOTE | 2023-11-19 19:26 | PC.NURSE ---
Dr. Martinez at patient bedside for update and review of results and plan.
[2023-11-19 19:45] VITALS: BP 132/77; PULSE 98; RESP 18; TEMP 36.2
== END 2023-11-19 19:47 | disposition home or self-care (01) ==
PROVIDERS: Emergency Provider Internal Medicine Critical Care Medicine; PCP Family Medicine
DX: N50.811 Right testicular pain (principal); G89.29 Other chronic pain; E11.65 Type 2 diabetes mellitus with hyperglycemia; K76.0 Fatty (change of) liver, not elsewhere classified; I10 Essential (primary) hypertension; J45.909 Unspecified asthma, uncomplicated; K21.9 Gastro-esophageal reflux disease without esophagitis; E78.2 Mixed hyperlipidemia; E66.9 Obesity, unspecified; Z68.38 Body mass index [BMI] 38.0-38.9, adult; Z79.84 Long term (current) use of oral hypoglycemic drugs
CPT/HCPCS: 36415; 80053; 81001; 83605; 83690; 84484; 85025; 99284

== ENCOUNTER 2023-11-24 14:36 | Outpatient (CLI) | payer OTHER, SELFPAY ==
--- NOTE | ~2023-11-24 | US_ITS ---
Testicular ultrasound with doppler. Indication: Testicular pain. Technique: Real-time sonography the scrotum was performed. Color flow Doppler and Doppler spectral an alysis were performed. Findings: The testes are homogeneous in echotexture bilaterally. There is no evidence of an intrates ticular mass. The right testis measures 3.6 x 3.8 x 2.6 cm and the left 3.7 x 3.0 x 2.7 cm. There is color-flow seen to both testes. Arterial and venous spectral waveforms are seen in both testes. There is no sonographic evidence of torsion. The head of the epididymis is visualized bilaterally and is within normal limits. Minimal bilateral hydroceles present. Borderline right-sided varicocele Impression: No testicular mass or torsion. Minimal bilateral hydroceles. Borderline right-sided varicocele. Reviewed, dictated and finalized at [facility]. Impression: No testicular mass or torsion. Minimal bilateral hydroceles. Borderline right-sided varicocele.
== END 2023-11-24 14:37 | disposition home or self-care (01) ==
LOC: CHSIMG 14:37
PROVIDERS: PCP Family Medicine; Visit Provider Family Medicine
DX: N50.819 Testicular pain, unspecified (principal); N43.3 Hydrocele, unspecified; I86.1 Scrotal varices
CPT/HCPCS: 76870; 93976

== ENCOUNTER 2024-04-23 08:52 | Outpatient (NON) | payer OTHER, SELFPAY | END 2024-04-23 08:53 | disposition home or self-care (01) | LOC: ANHGOSHLAB 08:53 | PROVIDERS: PCP Family Medicine; Visit Provider Student in an Organized Health Care Education/Training Program | DX: R35.0 Frequency of micturition (principal) | CPT/HCPCS: 87086 ==

== ENCOUNTER 2024-04-23 14:21 | Outpatient (CLI) | payer OTHER, SELFPAY ==
[2024-04-23 16:50] LABS: Hemoglobin A1C 8.1 % (<5.7)
[2024-04-23 16:51] LABS: Anion Gap 12 mmol/L (4-12); Blood Urea Nitrogen 12 mg/dL (9-20); Calcium 8.9 mg/dL (8.4-10.2); Carbon Dioxide 28 mmol/L (22-30); Chloride 97 mmol/L (98-107); Estimated Glomerular Filt Rate > 60; Glucose 174 mg/dL (65-110); Osmolality Calculated 287 mOsm/kg (285-295); Sodium 137 mmol/L (137-145)
== END 2024-04-23 14:22 | disposition home or self-care (01) ==
LOC: CHSLAB 14:24
PROVIDERS: PCP Family Medicine; Visit Provider Student in an Organized Health Care Education/Training Program
DX: R81 Glycosuria (principal); E11.9 Type 2 diabetes mellitus without complications
CPT/HCPCS: 36415; 80048; 83036

== ENCOUNTER 2024-10-02 13:50 | Outpatient (CLI) | payer OTHER, SELFPAY ==
--- OUTSIDE RECORDS SUMMARY | 2024-10-02 13:53 | XMS_ITS | Patient Health Summary ---
Author Organization [facility] Address [address] [place] [address] Care Team Providers Care Radiation Physicist Name Role Phone Julio Pete MD Primary Care Provider [phone] Note from [facility],non-owned Affiliates and Associated Physician Practices is amultiple site organization consisting of ambulatory clinics and hospital sitesin [place], [place], [place] and [place]. This disclosure is being madepursuant to the Care Everywhere program and may not contain all information available regarding this patient. Last updated 18.[facility] Social History Tobacco Use Types Packs/Day Years Used Date Smoking Tobacco: Never Assessed Sex and Gender Information Value Date Recorded Sex Assigned at Not on file Gender Identity Not on file Sexual Orientation Not on file Procedures * GROSS + MICRO EXAM(Performed 03/01/1998) Results * GROSS + MICRO EXAM (03/01/1998 11:30 AM CDT) Result CASE NUMBER [id number] [facility] PATH REPORT Comment: ORDERING PHYSICIAN RYAN CORONEL SPECIMEN TYPE Ethmoid-Contents CLINICAL HISTORY The patient is a 7-year-old boy who underwent bilateral myringotomy, adenoidectomy, and functional endoscopic sinus surgery. GROSS DESCRIPTION The specimen labeled with the patient's name and ethmoid contents is received fresh for gross and microscopic examination and consists of multiple fragments of pink-cottrell soft tissue admixed with fragments of pink-cottrell bone. The specimens have an aggregate measurement of 3.5 x 2 x 0.3 cm. Egg Grader fragments from the soft tissue portion of the specimen are submitted in a cassette labeled A . (CT/hm) MICROSCOPIC DESCRIPTION 1 slide, H/E DIAGNOSIS DIAGNOSIS ETHMOID CONTENTS - UPPER RESPIRATORY TRACT MUCOSA. - CHRONIC INFLAMMATION. Government Affairs Director MARY GUZMAN PATHOLOGIST Bronson Merchant M.D. ELECTRONICALLY TERRENCE Bronson Merchant MISCELLANEOUS SAMPLES / Unknown 03/01/1998 11:30 AM CDT 03/01/1998 1:24 PM CDT Historical Provider LAB - PATHOLOGY/C YTOLOGY ORDERABLES [facility] PATH REPORT Care Teams Radiation Physicist Relationship Specialty Start Date End Date Julio Pete MD [address] [place] [phone] PCP - General 09/10/18
--- OUTSIDE RECORDS SUMMARY | 2024-10-02 13:53 | XMS_ITS | Encounter Summary ---
Author Organization [facility] Address [address] [place] [address] Phone Care Team Providers Care Net Developer Architect Name Role Phone Peace Pete MD Primary Care Provider [phone] Mague Bermudez APRN, RADIO AERIAL INSTALLER Unavailable Herminio Jj MD Unavailable Reason for Visit * Reason Comments Medication Refill Encounter Details Date Type Department Care Team (Late st Contact Info) Description 10/23/2022 Refill [facility] - Gastroenterology [facility] [address] [place] [phone] Vianney Sauer MD [address] [place] [address] Medication Refill Social History Tobacco Use Types Packs/Day Years Used Date Smoking Tobacco: Never Smokeless Tobacco: Never Alcohol Use Standard Drinks/Week Comments No 0 (1 standard drink = 0.6 oz pur e alcohol) Sexually Active Control Partners Comments Not Currently Sex and Gender Information Value Date Recorded Sex Assigned at Not on file Legal Sex Male 8:46 AM CDT Gender Identity Not on file Sexual Orientation Not on file documented as of this encounter Miscellaneous Notes * Telephone Encounter - Mona Hebert RN - 10/23/2022 10:12 AM THIN FILM TECHNICIAN Pharmacy requesting refill of: Requested Prescriptions Pending Prescriptions Disp Refills ??? amitriptyline (ELAVIL) 10 MG Tablet [Pharmacy Med Name: AMITRIPTYLINE HCL 10 MG TAB] 90 Tablet 0 Sig: TAKE 1 TABLET BY MOUTH NIGHTLY Last fill: 07/26/2022 Patients last OV with GI: 04/10/2022 Next Office Visit with GI: None scheduled. Medication failed protocol, it cannot be delegated. Amitriptyline order pended, please review. FILM TECHNICIAN documented in this encounter Plan of Treatment Not on file documented as of this encounter Visit Diagnoses Not on filedocumented in this encounter Care Teams Net Developer Architect Relationship Specialty Start Date End Date Peace Pete MD PCP - General Family Medicine 04/27/18 Mague Bermudez APRN, RADIO AERIAL INSTALLER [address] [place] [address] Nurse Practitioner Advanced Practice Nurse 02/14/23 Herminio Jj MD [address] [address] Consulting Physician Colon and Rectal Surgery 02/13/24 documented as of this encounter
--- OUTSIDE RECORDS SUMMARY | 2024-10-02 13:53 | XMS_ITS | Encounter Summary ---
Author Organization [facility] Address [address] [place] [address] Phone Care Team Providers Care Joy Loading Machine Operator Name Role Phone Peace Peet MD Primary Care Provider [phone] Mague Bermudez APRN, SUPERINTENDENT TRANSMISSION Unavailable Herminio Jj MD Unavailable Reason for Visit * Reason Comments Medication Refill Encounter Details Date Type Department Care Team (Late st Contact Info) Description 07/25/2022 Refill [facility] - Gastroenterology [facility] [address] [place] [phone] Vianney Sauer MD [address] [place] [address] Medication Refill Social History Tobacco Use Types [...] encounter Miscellaneous Notes * Telephone Encounter - Sugar Prabhakar RN - 07/26/2022 8:17 AM CST Pharmacy requesting refill of: Requested Prescriptions Pending Prescriptions Disp Refills ??? amitriptyline (ELAVIL) 10 MG Tablet [Pharmacy Med Name: AMITRIPTYLINE HCL 10 MG TAB] 90 Tablet 0 Sig: TAKE 1 TABLET BY MOUTH NIGHTLY Last fill: 02/07/22 Patients last OV with GI: 04/10/22 Next Office Visit with GI: N/a Refilll cannot be delegated. Refill pended. Please sign if you agree. NICAL PLANNER documented in this encounter Plan of Treatment Not on file documented as of this encounter Visit Diagnoses Not on filedocumented in this encounter Care Teams Joy Loading Machine Operator Relationship Specialty Start Date End Date Peace Pete MD PCP - General Family Medicine 04/27/18 Mague Bermudez APRN, SUPERINTENDENT TRANSMISSION [address] [place] [address] Nurse Practitioner Advanced Practice Nurse 02/14/23 Herminio Jj MD [address] [address] Consulting Physician Colon and Rectal Surgery 02/13/24 documented as of this encounter
--- OUTSIDE RECORDS SUMMARY | 2024-10-02 13:53 | XMS_ITS | Referral Summary ---
Author Organization [facility] Address [address] [place] [address] Care Team Providers Care Assistant Community Director Name Role Phone Julio Pete MD Primary Care Provider [phone]- [phone] Source Comments [facility],non-owned Affiliates and Associated Physician Practices is amultiple site organization consisting of ambulatory clinics and hospital sitesin [place], [place], [place] and [place]. This disclosure is being madepursuant to the Care Everywhere program and may not contain all information available regarding this patient. Last updated 18.[facility] Social History Tobacco Use Types Packs/Day Years Used Date Smoking Tobacco: Never Assessed Sex and Gender Information Value Date Recorded Sex Assigned at Not on file Gender Identity Not on file Sexual Orientation Not on file Plan of Treatment Not on file Care Teams Assistant Community Director Relationship Specialty Start Date End Date Julio Pete MD [address] [place] [id number] PCP - General 09/10/18
--- OUTSIDE RECORDS SUMMARY | 2024-10-02 13:53 | XMS_ITS | Encounter Summary ---
Author Organization [facility] Address [address] [place] [address] Phone Care Team Providers Care Communication Instructor Name Role Phone Peace Pete MD Primary Care Provider +1 [phone] Mague Bermudez APRN, WAFER CUTTER Unavailable Herminio Jj MD Unavailable Reason for Visit * Reason Comments Medication Refill Encounter Details Date Type Department Care Team (Late st Contact Info) Description 10/22/2023 Refill [facility] #[facility] [place] [id number] Mague Bermudez APRN, WAFER CUTTER [address] [place] [address] Medication Refill Social History Tobacco Use Types [...] Telephone Encounter - Mona Hebert RN - 10/23/2023 8:45 AM HI TEACHER Medication failed the protocol, provider to review and approve the medication order if appropriate. Requested Prescriptions Pending Prescriptions Disp Refills amitriptyline (ELAVIL) 10 MG Tablet [Pharmacy Med Name: AMITRIPTYLINE HCL 10 MG TAB] 90 Tablet 0 Sig: TAKE 1 TABLET BY MOUTH EVERY DAY AT NIGHT Not Delegated - Tricyclic Agents Protocol Failed - 10/22/2023 3:21 PM Failed - This refill cannot be delegated Passed - Visit with relevant provider in past 12 months or upcoming 90 days Recent Visits Date Type Provider Dept 04/01/23 Office Visit Mague Bermudez APRN, CNP [facility] 02/14/23 Office Visit Mague Bermudez APRN, CNP [facility] [place] Showing recent visits within past 365 days and meeting all other requirements Future Appointments No visits were found meeting these conditions. Showing future appointments within next 90 days and meeting all other requirements TEACHER documented in this encounter Plan of Treatment Not on file documented as of this encounter Visit Diagnoses Not on filedocumented in this encounter Care Teams Communication Instructor Relationship Specialty Start Date End Date Peace Pete MD PCP - General Family Medicine 04/27/18 Mague Bermudez APRN, JOSEPH [address] [place] [address] Nurse Practitioner Advanced Practice Nurse 02/14/23 Herminio Jj MD [address] [address] Consulting Physician Colon and Rectal Surgery 02/13/24 documented as of this encounter
--- OUTSIDE RECORDS SUMMARY | 2024-10-02 13:53 | XMS_ITS | Encounter Summary ---
Author Organization [facility] Address [address] [place] [address] Phone Care Team Providers Care Buff Wheel Fabricator Name Role Phone Peace Pete MD Primary Care Provider [phone] [phone] Mague Bermudez APRN, CHICKEN BUYER Unavailable Herminio Jj MD Unavailable Reason for Visit * Reason Comments Medication Refill Encounter Details Date Type Department Care Team (Late st Contact Info) Description 08/02/2023 Refill [facility] #2 [place] [phone] Mague Bermudez APRN, CHICKEN BUYER [address] [place] [address] Medication Refill Social History Tobacco Use Types [...] Telephone Encounter - Mona Hebert RN - 08/04/2023 6:40 PM NICKEL PLANT OPERATOR Medication failed the protocol, provider to review and approve the medication order if appropriate. Requested Prescriptions Pending Prescriptions Disp Refills amitriptyline (ELAVIL) 10 MG Tablet [Pharmacy Med Name: AMITRIPTYLINE HCL 10 MG TAB] 90 Tablet 0 Sig: TAKE 1 TABLET BY MOUTH EVERY DAY AT NIGHT Not Delegated - Tricyclic Agents Protocol Failed - 08/02/2023 9:06 AM Failed - This refill cannot be delegated Passed - Visit with relevant provider in past 12 months or upcoming 90 days Recent Visits Date Type Provider Dept 04/01/23 Office Visit Mague Bermudez APRN, CNP [facility] 02/14/23 Office Visit Mague Bermudez APRN, CNP [facility] Showing recent visits within past 365 days and meeting all other requirements Future Appointments No visits were found meeting these conditions. Showing future appointments within next 90 days and meeting all other requirements EL PLANT OPERATOR documented in this encounter Plan of Treatment Not on file documented as of this encounter Visit Diagnoses Not on filedocumented in this encounter Care Teams Buff Wheel Fabricator Relationship Specialty Start Date End Date Peace Pete MD PCP - General Family Medicine 04/27/18 Mague Bermudez APRN, JOSEPH [address] [place] [address] Nurse Practitioner Advanced Practice Nurse 02/14/23 Herminio Jj MD #[address] [address] Consulting Physician Colon and Rectal Surgery 02/13/24 documented as of this encounter
--- OUTSIDE RECORDS SUMMARY | 2024-10-02 13:53 | XMS_ITS | Clinical Summary ---
Author Organization [facility] Address [address] [address] Phone Care Team Providers Care Roller Helper Name Role Phone Peace Pete MD Primary Care Provider Mague Bermudez APRN, FOOD OR BAGGAGE HANDLING RAMPMAN Unavailable Herminio Jj MD Unavailable Allergies Active Allergy Reactions Criticality Noted Date Comments Sulfa Antibiotics Rash 04/27/2018 Medications benazepril (LOTENSIN) 20 MG Tablet Take by mouth. 08/09/20 17 Active albuterol 108 (90 Base) MCG/ACT Aerosol Solution take by inhalation. Active triamcinolone (KENALOG) 0.1 % Cream Apply. Active Wheat Dextrin (BENEFIBER PO) Take by mouth. Active diphenhydrAMINE (BENADRYL) 25 MG Capsule Take 25 mg by mouth every 6 hours as needed. Active Alogliptin Benzoate 25 MG Tablet 08/19/19 20 Active amLODIPine (NORVASC) 5 MG Tablet 08/17/20 19 Active JARDIANCE 10 MG Tablet 25 mg. 02/08/20 20 Active Polyethylene Glycol 3350 (MIRALAX PO) Take by mouth. Ac tive Multiple Vitamin (MULTI-VITAMIN PO) Take by mouth. Activ e Cholecalciferol (VITAMIN D-3 PO) Take by mouth. Activ e Coenzyme Q10 100 MG Capsule Take by mouth. Active COMPOUNDED MEDICATIONIndic ations:Rectal fissure Nifedipine .4 Lidocaine 3% hydorcortisone 2.5 % Compounded creme Use Tid PRN rectal pain 1 Each 2 08/29/19 22 Active VITAMIN E PO Take by mouth. Ac tive other by Other route. IV guard Active Tradjenta 5 MG Tablet Take 5 mg by mouth every morning. 03/13/20 23 Active dicyclomine (BENTYL) 20 MG Tablet Take 1 Tablet by mouth 2 times daily. 180 Tablet 1 05/30/20 23 Active Additional Information Patient not taking.Reported on 01/14/2024 omeprazole (PriLOSEC) 20 MG CAPSULE DELAYED RELEASEIndicati ons:Gastroesoph ageal reflux disease, unspecified whether esophagitis present TAKE 2 CAPSULES BY MOUTH EVERY DAY 180 Capsule 3 10/03/19 24 Active Hydrocortisone, Perianal, 2.5 % Cream APPLY RECTALLY DAILY NEEDED FOR HEMORRHOIDS 01/07/20 24 Active hydrocortisone (ANUSOL-HC) 25 MG SuppositoryIndi cations:Hemorrh oids, unspecified hemorrhoid type 25 mg by Rectal route every 12 hours. 30 Suppository 06/18/20 24 Active amitriptyline (ELAVIL) 10 MG Tablet TAKE 1 TABLET BY MOUTH EVERY DAY AT NIGHT 90 Tablet 07/14/20 24 Active Active Problems Problem Noted Date Diagnosed Date Hemorrhoids 09/06/2020 Rectal fissure 02/28/2020 Irritable bowel syndrome with constipation 08/20 Overview (02/28/2020): Last Assessment & Plan: [place]-wilbur helped mostly for his constipation but has been taking once daily, recommend to increase up to 3 times daily as needed Add bentyl prn He could not afford linzess rtc 6-8 months Encounters Date Type Department Care Team Description 07/14/2024 Refill [facility] - Gastroenter[facility] [address] [place] [address] Mague Bermudez, HEAD GIRLS GOLF COACH, FOOD OR BAGGAGE HANDLING RAMPMAN Medication Refill from Last 3 Months Immunizations Immunization Administration Dates Next Due Influenza Vaccine, Quadrivalent, PF 03/2021,06/15/2020,06/14/2020,05/19,08/12/2018 Pneumococcal conjugate PCV20 , polysaccharide [id number] conjugate, adjuvant, PF 03/10/2022 Td Vaccine (preservative free) 03/10/2022 Family History Medical History Relation Name Comments No Known Problems Brother Hypertension Father Other-comment Father sleep apnea Diabetes Mother Rheumatoid Arthritis Mother Leukemia/Lymphoma Paternal Grandfather Relation Name Status Comments Brother Alive Father Alive Mother Alive Paternal Grandfather Social History Tobacco Use Types Packs/Day Years Used Date Smoking Tobacco: Never Smokeless Tobacco: Never Tobacco Cessation:Counseling Given: Not Answered Alcohol Use Standard Drinks/Week Comments No 0 (1 standard drink = 0.6 oz pur e alcohol) Sexually Active Control Partners Comments Not Currently Sex and Gender Information Value Date Recorded Sex Assigned at Not on file Legal Sex Male 8:46 AM CDT Gender Identity Not on file Sexual Orientation Not on file Last Filed Vital Signs Vital Sign Reading Time Taken Comments Blood Pressure 158/58 02/25/2024 1:56 PM CDT Pulse 110 02/25/2024 1:56 PM CDT Temperature 36.4 C (97.6 F) 02/25/2024 1:56 PM CDT Respiratory Rate 16 02/25/2024 1:56 PM CDT Oxygen Saturation 98% 02/25/2024 1:56 PM CDT Inhaled Oxygen Concentration - - Weight 122.9 kg (271 lb) 02/25/2024 1:56 PM CDT Height 177.8 cm (5' 10 ) 02/25/2024 1:56 PM CDT Body Mass Index 38.88 02/25/2024 1:56 PM CDT Plan of Treatment Health Maintenance Due Date Last Done Comments Hepatitis C Virus (HCV) Screening 1988 TdaP Immunization 1988 Hepatitis B Immunization (1 of 3 - 19+ 3-dose series) 12/15/2007 Influenza Immunization (#1) 04/18/202407/18, 07/19/2022, 06/25/2021, Additional history exists SARS-COV-2 Immunization ( season) 2024 08/02/2023, 12/22/2021, 12/26/2020, Additional history exists Colonoscopy High Risk 09/23/2029 09/23/2019 Colorectal Cancer Screening 09/23/2029 Colonoscopy 2033 09/23/2019 Respiratory Syncytial Virus (RSV) Immunization (Adult) (1 - 1-dose 75+ series) 12/15/2063 DTaP/Tdap/Td Immunization Discontinued 03/10/2022 Pneumococcal Immunization Combined Aged Out 03/10/2022 No longer eligible based on patient's age to complete this topic Meningococcal Immunization (ACWY) Aged Out No longer eligible based on patient's age to complete this topic Rotavirus Immunization Aged Out No lo nger eligible based on patient's age to complete this topic Procedures Procedure Name Priority Date/Time Associated Diagnosis Comments COLONOSCOPY Routine 09/23/2019 from Last 3 Months or Most Recently Relevant to Health Maintenance Results * COLONOSCOPY (09/23/2019) Loco Hernandez DO PROCEDURE/MINOR SURGICAL ORDERA BLES Final Result from Last 3 Months or Most Recently Relevant to Health Maintenance Insurance MEDICAID [place] Care Teams Roller Helper Relationship Specialty Start Date End Date Peace Pete MD PCP - General Family Medicine 04/27/18 Mague Bermudez APRN, FOOD OR BAGGAGE HANDLING RAMPMAN [address] [place] [address] Nurse Practitioner Advanced Practice Nurse 02/14/23 Herminio Jj MD [address]2 [place] [address] Consulting Physician Colon and Rectal Surgery 02/13/24
--- OUTSIDE RECORDS SUMMARY | 2024-10-02 13:53 | XMS_ITS | Encounter Summary ---
Author Organization [facility] Address [address] [place] [address] Phone Care Team Providers Care Thermocouple Tester Name Role Phone Peace Pete MD Primary Care Provider +1 [phone] Mague Bermudez APRN, TEST CARRIER Unavailable Herminio Jj MD Unavailable Reason for Visit * Reason Comments Medication Refill Encounter Details Date Type Department Care Team (Late st Contact Info) Description 01/23/2023 Refill [facility] [address]2 [place] [phone] Vianney Sauer MD [address]2 [place] [address] Medication Refill Social History Tobacco Use Types [...] Telephone Encounter - Mona Hebert RN - 01/29/2023 3:20 PM CDT Patient calling and checking on amitriptyline refill request. Order pended, please review. Patient made an appt for 02/14/2023. * Telephone Encounter - Sugar Prabhakar RN - 01/23/2023 8:17 AM CDT Medication failed the protocol, provider to review and approve the medication order if appropriate. Requested Prescriptions Pending Prescriptions Disp Refills amitriptyline (ELAVIL) 10 MG Tablet [Pharmacy Med Name: AMITRIPTYLINE HCL 10 MG TAB] 90 Tablet 0 Sig: TAKE 1 TABLET BY MOUTH NIGHTLY Not Delegated - Tricyclic Agents Protocol Failed - 01/23/2023 8:13 AM Failed - This refill cannot be delegated Passed - Visit with relevant provider in past 12 months or upcoming 90 days Recent Visits Date Type Provider Dept 04/10/22 Office Visit Naila Courtney Gabbi, PAC [facility] Showing recent visits within past 365 days and meeting all other requirements Future Appointments No visits were found meeting these conditions. Showing future appointments within next 90 days and meeting all other requirements documented in this encounter Plan of Treatment Not on file documented as of this encounter Visit Diagnoses Not on filedocumented in this encounter Care Teams Thermocouple Tester Relationship Specialty Start Date End Date Peace Pete MD PCP - General Family Medicine 04/27/18 Mague Bermudez APRN, TEST CARRIER [address] [place] [address] Nurse Practitioner Advanced Practice Nurse 02/14/23 Herminio Jj MD #[address] [address] Consulting Physician Colon and Rectal Surgery 02/13/24 documented as of this encounter
--- OUTSIDE RECORDS SUMMARY | 2024-10-02 13:53 | XMS_ITS | Encounter Summary ---
Author Organization [facility] Address [address] [place] [address] Phone Care Team Providers Care Hatchery Employee Name Role Phone Peace Pete MD Primary Care Provider +1 [phone] Mague Bermudez APRN, HEALTH POLICY MANAGER Unavailable Herminio Jj MD Unavailable Reason for Visit * Reason Comments Medication Refill Encounter Details Date Type Department Care Team (Late st Contact Info) Description 05/07/2022 Refill [facility] - [facility] #2 [place] [phone] Vianney Sauer MD [address] [place] [address] Medication Refill Social History Tobacco Use Types [...] on file Sexual Orientation Not on file COVID-19 Exposure Response Date Recorded In the last 10 days, have yo u been in contact with someone who was confirmed or suspected to have Coronavirus/COVID-19? No / Unsure 04/10/2022 2:18 PM CDT documented as of this encounter Miscellaneous Notes * Telephone Encounter - Mona Hebert RN - 05/07/2022 12:08 PM CDT Pharmacy requesting refill of: Requested Prescriptions Pending Prescriptions Disp Refills ??? amitriptyline (ELAVIL) 10 MG Tablet [Pharmacy Med Name: AMITRIPTYLINE HCL 10 MG TAB] 90 Tablet 0 Sig: TAKE 1 TABLET BY MOUTH NIGHTLY Last fill: 02/08/2022 Patients last OV with GI: 04/10/2022 Next Office Visit with GI: None scheduled. Medication cannot be delegated. Amitriptyline order pended, please review. documented in this encounter Plan of Treatment Not on file documented as of this encounter Visit Diagnoses Not on filedocumented in this encounter Care Teams Hatchery Employee Relationship Specialty Start Date End Date Peace Pete MD PCP - General Family Medicine 04/27/18 Mague Bermudez APRN, JOSEPH [address] [place] [address] Nurse Practitioner Advanced Practice Nurse 02/14/23 Herminio Jj MD #[address] [address] Consulting Physician Colon and Rectal Surgery 02/13/24 documented as of this encounter
--- OUTSIDE RECORDS SUMMARY | 2024-10-02 13:53 | XMS_ITS | Clinical Summary ---
Author Organization [facility] Address [address] [place] [address] Care Team Providers Care Log Manager Name Role Phone Julio Pete MD Primary Care Provider [phone]- [phone] Source Comments [facility] [employer],non-owned Affiliates and Associated Physician Practices is amultiple site organization consisting of ambulatory clinics and hospital sitesin [place], [place], [place] and [place]. This disclosure is being madepursuant to the Care Everywhere program and may not contain all information available regarding this patient. Last updated 18.[facility] Social History Tobacco Use Types Packs/Day Years Used Date Smoking Tobacco: Never Assessed Sex and Gender Information Value Date Recorded Sex Assigned at Not on file Gender Identity Not on file Sexual Orientation Not on file Plan of Treatment Health Maintenance Due Date Last Done Comments HIV SCREENING 12/15/2003 HEPATITIS C SCREENING 12/10/2006 DTAP/TDAP/TD VACCINES (1 - Tdap) 12/15/2007 HEPATITIS B VACCINE (1 of 3 - 19+ 3-dose series) 12/15/2007 COVID-19 VACCINE ( - 2023-2 5 season) 2024 INFLUENZA VACCINE (#1) 2024 DEPRESSION SCREENING 08/18/2024 ZOSTER VACCINE (1 of 2) 2038 HIB VACCINE Aged Out No longer eligi ble based on patient's age to complete this topic HPV VACCINE Aged Out No longer eligi ble based on patient's age to complete this topic MENINGOCOCCAL (Group B) VACCINE Aged Out No longer eligible based on patient's age to complete this topic MENINGOCOCCAL VACCINE Aged Out No randy spring eligible based on patient's age to complete this topic PNEUMOCOCCAL VACCINE Aged Out No long er eligible based on patient's age to complete this topic Care Teams Log Manager Relationship Specialty Start Date End Date Julio Pete MD [address] [place] [address] PCP - General 09/10/18
--- OUTSIDE RECORDS SUMMARY | 2024-10-02 13:53 | XMS_ITS | Encounter Summary ---
Author Organization [facility] Address [address] [place] [address] Phone Care Team Providers Care Larriman Helper Name Role Phone Peace Pete MD Primary Care Provider +1 [phone] Mague Bermudez APRN, SIDE DOOR WORKER Unavailable Herminio Jj MD Unavailable Reason for Visit * Reason Comments Medication Refill Encounter Details Date Type Department Care Team (Late st Contact Info) Description 09/29/2023 Refill [facility] [address]2 [place] [phone] Mague Bermudez APRN, SIDE DOOR WORKER [address] [place] [address] Medication Refill Social History Tobacco Use Types [...] Telephone Encounter - Mona Hebert RN - 10/02/2023 4:07 PM FANCY STITCHER Spoke with patient, he is no longer taking pantoprazole and famotidine. He is asking for a refill of the omeprazole. Order pended, please review pended order. Y STITCHER * Telephone Encounter - Mona Hebert RN - 10/02/2023 8:58 AM FANCY STITCHER Left message to call back. Pantoprazole order noted to be placed by Ferny Bermudez NP on 04/01/2023. Y STITCHER * Telephone Encounter - Mona Hebert RN - 10/02/2023 8:54 AM FANCY STITCHER Pharmacy requesting refill of: Requested Prescriptions Pending Prescriptions Disp Refills ??? omeprazole (PriLOSEC) 20 MG CAPSULE DELAYED RELEASE [Pharmacy Med Name: OMEPRAZOLE DR 20 MG CAPSULE] 60 Capsule 5 Sig: TAKE 2 CAPSULES BY MOUTH EVERY DAY Last fill: Name from pharmacy: OMEPRAZOLE DR 20 MG CAPSULE Will file in chart as: omeprazole (PriLOSEC) 20 MG CAPSULE DELAYED RELEASE The original prescription was discontinued on 04/01/2023 by Mague Bermudez APRN, JOSEPH for thefollowing reason: Alternate therapy. Renewing this prescription may not be appropriate Patients last OV with GI: 04/01/2023 Next Office Visit with GI: None scheduled, recall noted. Y STITCHER documented in this encounter Plan of Treatment Not on file documented as of this encounter Visit Diagnoses Diagnosis Gastroesophageal reflux disease, unspecified whether esophagitis present documented in this encounter Care Teams Larriman Helper Relationship Specialty Start Date End Date Peace Pete MD PCP - General Family Medicine 04/27/18 Mague Bermudez APRN, SIDE DOOR WORKER [address] [place] [address] Nurse Practitioner Advanced Practice Nurse 02/14/23 Herminio Jj MD #[address] [address] Consulting Physician Colon and Rectal Surgery 02/13/24 documented as of this encounter
--- OUTSIDE RECORDS SUMMARY | 2024-10-02 13:53 | XMS_ITS | Clinical Summary ---
Author Organization [facility] Address [address] [place] [address] Care Team Providers Care Rural Carrier Associate Name Role Phone Peace Pete MD Primary Care Provider + Allergies Active Allergy Reactions Criticality Noted Date Comments Sulfa (Sulfonamide Antibiotics) Rash Medium 01/17 Medications cetirizine (ZyrTEC) 10 mg tablet Take 10 mg by mouth daily. Active omeprazole (PriLOSEC) 20 mg capsule Take 20 mg by mouth daily. Active amLODIPine besylate, bulk, 100 % powder 5 mg daily. Activ e empagliflozin-li nagliptin 10-5 mg tablet Take by mouth daily. Active BENAZEPRIL HCL, BULK, MISC 20 mg daily. Active albuterol HFA (PROVENTIL HFA,VENTOLIN HFA) 90 mcg/actuation inhaler Inhale 2 puffs every 4 (four) hours as needed for wheezing. Active triamcinolone (KENALOG) 0.1 % cream Apply topically 2 (two) times a day. Active metoclopramide (REGLAN) 5 mg tablet Take 1 tablet (5 mg total) by mouth 2 (two) times a day before breakfast and dinner. 60 tablet 6 7 Active Additional Information Patient not taking.Reported on 08/20/2017 amLODIPine (NORVASC) 5 mg tablet Take 5 mg by mouth daily. 2 7 Active benazepril (LOTENSIN) 20 mg tablet Take 20 mg by mouth daily. 2 7 Active TRADJENTA 5 mg tabletIndication s:type 2 diabetes mellitus Take 5 mg by mouth daily. 5 7 Active dicyclomine (BENTYL) 10 mg capsuleIndicatio ns:Generalized abdominal pain,Burping Take 1 capsule (10 mg total) by mouth 4 (four) times a day as needed (pain/gas). 90 capsule 5 8 Active amitriptyline (ELAVIL) 25 mg tabletIndication s:Irritable bowel syndrome, unspecified type Take 1 tablet (25 mg total) by mouth nightly. 30 tablet 4 8 Active Active Problems Problem Noted Date Diagnosed Date Generalized abdominal pain 08/20/2017 Burping 08/20/2017 Assessment & Plan (08/20/2017 11:27 AM SCOURING MACHINE OPERATOR): Will given flagyl as empiric treatment for possible SIBO but most likely functional component Will add also bentyl as needed Irritable bowel syndrome 08/20/2017 Assessment & Plan (08/20/2017 11:29 AM SCOURING MACHINE OPERATOR): Dorinda helped mostly for his constipation but has been taking once daily, recommend to increase up to 3 times daily as needed Add bentyl prn He could not afford linzess rtc 6-8 months Morbid obesity due to excess calories 08/20/2017 Assessment & Plan (08/20/2017 11:33 AM SCOURING MACHINE OPERATOR): Encourage to lose weight Surgical History Surgery Date Site/Laterality Comments SINUS SURGERY Medical History Medical History Date Comments Anxiety Diabetes mellitus (HCC) Hypertension Family History Medical History Relation Name Comments Hypertension Father Diabetes Mother Rheumatologic disease Mother Relation Name Status Comments Father Alive Mother Alive Social History Tobacco Use Types Packs/Day Years Used Date Smoking Tobacco: Never Smokeless Tobacco: Never Alcohol Use Standard Drinks/Week Comments No 0 (1 standard drink = 0.6 oz pur e alcohol) Personal Safety Answer Date Recorded Getting School Help Needed Not on file 11/01 Sex and Gender Information Value Date Recorded Sex Assigned at Not on file Legal Sex Male 3:17 AM SCOURING MACHINE OPERATOR Gender Identity Not on file Sexual Orientation Not on file Obstetrics History Last Filed Vital Signs Vital Sign Reading Time Taken Comments Blood Pressure 122/68 08/20/2017 11:02 AM SCOURING MACHINE OPERATOR Pulse 95 08/20/2017 11:02 AM SCOURING MACHINE OPERATOR Temperature 37 C (98.6 F) 08/20/2017 11:02 AM SCOURING MACHINE OPERATOR Respiratory Rate - - Oxygen Saturation - - Inhaled Oxygen Concentration - - Weight 140.2 kg (309 lb) 08/20/2017 11:02 AM SCOURING MACHINE OPERATOR Height 175.3 cm (5' 9 ) 08/20/2017 11:02 AM SCOURING MACHINE OPERATOR Body Mass Index 45.63 08/20/2017 11:02 AM SCOURING MACHINE OPERATOR Plan of Treatment Not on file Insurance IDPA Care Teams Rural Carrier Associate Relationship Specialty Start Date End Date Peace Pete MD PCP - General 12/11/16
--- OUTSIDE RECORDS SUMMARY | 2024-10-02 13:53 | XMS_ITS | Referral Summary ---
Author Organization [facility] Address [address] [place] [address] Care Team Providers Care Correspondence School Teacher Name Role Phone Peace Pete MD Primary [...] 08/20/2017 Assessment & Plan (08/20/2017 11:27 AM ACCOUNTS PAYABLE TECHNICIAN): Will given flagyl as empiric treatment for possible SIBO but most likely functional component Will add also bentyl as needed Irritable bowel syndrome 08/20/2017 Assessment & Plan (08/20/2017 11:29 AM ACCOUNTS PAYABLE TECHNICIAN): Dorinda helped mostly for his constipation but has been taking once daily, recommend to increase up to 3 times daily as needed Add bentyl prn He could not afford linzess rtc 6-8 months Morbid obesity due to excess calories 08/20/2017 Assessment & Plan (08/20/2017 11:33 AM ACCOUNTS PAYABLE TECHNICIAN): Encourage to lose weight Social History Tobacco Use Types Packs/Day Years Used Date Smoking Tobacco: Never Smokeless Tobacco: Never Alcohol Use Standard Drinks/Week Comments No 0 (1 standard drink = 0.6 oz pur e alcohol) Personal Safety Answer Date Recorded Getting School Help Needed Not on file 11/01 Sex and Gender Information Value Date Recorded Sex Assigned at Not on file Legal Sex Male 3:17 AM ACCOUNTS PAYABLE TECHNICIAN Gender Identity Not on file Sexual Orientation Not on file Last Filed Vital Signs Vital Sign Reading Time Taken Comments Blood Pressure 122/68 08/20/2017 11:02 AM ACCOUNTS PAYABLE TECHNICIAN Pulse 95 08/20/2017 11:02 AM ACCOUNTS PAYABLE TECHNICIAN Temperature 37 C (98.6 F) 08/20/2017 11:02 AM ACCOUNTS PAYABLE TECHNICIAN Respiratory Rate - - Oxygen Saturation - - Inhaled Oxygen Concentration - - Weight 140.2 kg (309 lb) 08/20/2017 11:02 AM ACCOUNTS PAYABLE TECHNICIAN Height 175.3 cm (5' 9 ) 08/20/2017 11:02 AM ACCOUNTS PAYABLE TECHNICIAN Body Mass Index 45.63 08/20/2017 11:02 AM ACCOUNTS PAYABLE TECHNICIAN Plan of Treatment Not on file Insurance IDPA Care Teams Correspondence School Teacher Relationship Specialty Start Date End Date Peace Pete MD PCP - General 12/11/16
--- OUTSIDE RECORDS SUMMARY | 2024-10-02 13:53 | XMS_ITS | Encounter Summary ---
Author Organization [facility] Address [address] [place] [address] Phone Care Team Providers Care Rustic Terrazzo Setter Name Role Phone Peace Pete MD Primary Care Provider +1 [phone] Mague Bermudez APRN, WAFER MOUNTER Unavailable Herminio Jj MD Unavailable Reason for Visit * Reason Comments Medication Refill Encounter Details Date Type Department Care Team (Late st Contact Info) Description 01/19/2024 [facility]ill [facility] #2 [place] [phone] Mague Bermudez, MARCIN, WAFER MOUNTER [address] [place] [address] Medication Refill Social History Tobacco Use Types [...] encounter Miscellaneous Notes * Telephone Encounter - Ranjana Shea CMA - 01/19/2024 9:18 AM CDT Received fax from [facility] pharmacy that the Hydrocortisone AC 25 mg suppositories is not covered by hisinsurance. They are asking for a new prescription be sent in. * Telephone Encounter - Irma Prado RN - 01/19/2024 8:20 AM CDT Medication failed the protocol, provider to review and approve the medication order if appropriate. Requested Prescriptions Pending Prescriptions Disp Refills amitriptyline (ELAVIL) 10 MG Tablet [Pharmacy Med Name: AMITRIPTYLINE HCL 10 MG TAB] 90 Tablet 0 Sig: TAKE 1 TABLET BY MOUTH EVERY DAY AT NIGHT Not Delegated - Tricyclic Agents Protocol Failed - 01/19/2024 12:35 AM Failed - This refill cannot be delegated Passed - Visit with relevant provider in past 12 months or upcoming 90 days Recent Visits Date Type Provider Dept 01/14/24 Office Visit Mague Bermudez APRN, JOSEPH [facility] [place] 04/01/23 Office Visit Mague Bermudez APRN, CNP [facility] 02/14/23 Office Visit Mague Bermudez APRN, JOSEPH [facility] Showing recent visits within past 365 days and meeting all other requirements Future Appointments No visits were found meeting these conditions. Showing future appointments within next 90 days and meeting all other requirements documented in this encounter Plan of Treatment Not on file documented as of this encounter Visit Diagnoses Not on filedocumented in this encounter Care Teams Rustic Terrazzo Setter Relationship Specialty Start Date End Date Peace Pete MD PCP - General Family Medicine 04/27/18 Mague Bermudez APRN, WAFER MOUNTER #2 [facility] [address] Nurse Practitioner Advanced Practice Nurse 02/14/23 Herminio Jj MD #[address] [facility] [address] [address] Consulting Physician Colon and Rectal Surgery 02/13/24 documented as of this encounter
--- OUTSIDE RECORDS SUMMARY | 2024-10-02 13:53 | XMS_ITS | Encounter Summary ---
Author Organization [facility] Address [address] [place] [address] Phone Care Team Providers Care Storage Facility Housekeeper Name Role Phone Peace Pete MD Primary Care Provider +[phone] Mague Bermudez APRN, RN LVN Unavailable Herminio Jj MD Unavailable Reason for Visit * Reason Comments Medication Refill Encounter Details Date Type Department Care Team (Late st Contact Info) Description 05/04/2023 Refill [facility] #2 [place] [phone] Vianney Sauer MD [address] [place] [address] Medication Refill Social History Tobacco Use Types [...] Telephone Encounter - Mona Hebert RN - 05/05/2023 12:54 PM CDT Medication failed the protocol, provider to review and approve the medication order if appropriate. Requested Prescriptions Pending Prescriptions Disp Refills amitriptyline (ELAVIL) 10 MG Tablet [Pharmacy Med Name: AMITRIPTYLINE HCL 10 MG TAB] 90 Tablet 0 Sig: TAKE 1 TABLET BY MOUTH EVERY DAY AT NIGHT Not Delegated - Tricyclic Agents Protocol Failed - 05/04/2023 5:22 AM Failed - This refill cannot be delegated Passed - Visit with relevant provider in past 12 months or upcoming 90 days Recent Visits Date Type Provider Dept 04/01/23 Office Visit Mague Bermudez APRN, [facility] [place] 02/14/23 Office Visit Mague Bermudez APRN, JOSEPH [...] on filedocumented in this encounter Care Teams Storage Facility Housekeeper Relationship Specialty Start Date End Date Peace Pete MD PCP - General Family Medicine 04/27/18 Mague Bermudez APRN, RN LVN [address]2 [place] [address] Nurse Practitioner Advanced Practice Nurse 02/14/23 Herminio Jj MD #[address] [address] Consulting Physician Colon and Rectal Surgery 02/13/24 documented as of this encounter
--- OUTSIDE RECORDS SUMMARY | 2024-10-02 13:53 | XMS_ITS | Encounter Summary ---
Author Organization [facility] Address [address] [place] [address] Phone Care Team Providers Care Doweler Name Role Phone Peace Pete MD Primary Care Provider +1 [phone] Mague Bermudez APRN, PORCELAIN FINISHER Unavailable Herminio Jj MD Unavailable Reason for Visit * Reason Comments Medication Refill Encounter Details Date Type Department Care Team (Late st Contact Info) Description 02/07/2022 Refill [facility] #2 [place] [phone] Vianney Sauer MD #2 [place] [address] Medication Refill Social History Tobacco Use Types [...] Telephone Encounter - Mona Hebert RN - 02/08/2022 1:48 PM CDT Pharmacy requesting refill of: Requested Prescriptions Pending Prescriptions Disp Refills ??? amitriptyline (ELAVIL) 10 MG Tablet [Pharmacy Med Name: AMITRIPTYLINE HCL 10 MG TAB] 90 Tablet 0 Sig: TAKE 1 TABLET BY MOUTH NIGHTLY Last fill: 11/12/2021 Patients last OV with GI: 12/06/2021 Next Office Visit with GI: No appt noted, recall noted per chart review. Amitriptyline cannot be delegated. Order pended, please review. documented in this encounter Plan of Treatment Not on file documented as of this encounter Visit Diagnoses Not on filedocumented in this encounter Care Teams Doweler Relationship Specialty Start Date End Date Peace Pete MD PCP - General Family Medicine 04/27/18 Mague Bermudez APRN, PORCELAIN FINISHER [address] [place] [address] Nurse Practitioner Advanced Practice Nurse 02/14/23 Herminio Jj MD #[address] [address] Consulting Physician Colon and Rectal Surgery 02/13/24 documented as of this encounter
[2024-10-02 14:53] LABS: Creatinine Urine 103.08 mg/dL (40-278); MALB Creatinine Ratio 12.6 mg/g (0-30); Microalbumin Urine Random < 13.0 mg/L
[2024-10-02 14:54] LABS: Hemoglobin A1C 7.4 % (<5.7)
[2024-10-02 15:06] LABS: Alanine Aminotransferase 45 U/L (16-63); Albumin Level 4.2 g/dL (3.4-5.0); Alkaline Phosphatase 74 U/L (46-116); Anion Gap 7 mmol/L (4-12); Aspartate Amino Transferase 23 U/L (15-37); Bilirubin,Total 0.9 mg/dL (0.00-1.00); Blood Urea Nitrogen 11 mg/dL (7-18); Calcium 8.9 mg/dL (8.5-10.1); Carbon Dioxide 32 mmol/L (21-32); Chloride 101 mmol/L (98-108); Cholesterol 155 mg/dL (0-200); Estimated Glomerular Filt Rate > 60; Glucose 152 mg/dL (70-99); HDL Direct 33 mg/dL (40-60); Osmolality Calculated 292 mOsm/kg (285-295); Potassium 3.8 mmol/L (3.5-5.1); Sodium 140 mmol/L (136-145); Total Protein 7.2 g/dL (6.4-8.2)
[2024-10-02 15:08] LABS: LDL Cholesterol Calculated 10 mg/dL (<130); Triglycerides 562 mg/dL (0-150)
[2024-10-02 15:40] LABS: LDL Cholesterol Direct 50 mg/dL (0-130)
[2024-10-05 01:59] LABS: Vitamin D 25 Hydroxy 31 ng/mL (30-100)
== END 2024-10-02 13:51 | disposition home or self-care (01) ==
LOC: CHSLAB 13:51
PROVIDERS: PCP Family Medicine; Visit Provider Family Medicine
DX: E55.9 Vitamin D deficiency, unspecified (principal); E11.9 Type 2 diabetes mellitus without complications
CPT/HCPCS: 36415; 80053; 80061; 82043; 82306; 83036; 83721

== ENCOUNTER 2025-04-17 07:48 | Emergency (ER) | payer OTHER, SELFPAY ==
--- NOTE | ~2025-04-17 | CT_ITS ---
EXAMINATION: CT soft tissue neck wo con DATE: 04/17/2025 08:25 INDICATION: Foreign body with swallowed pill stuck in the left upper throat. TECHNIQUE: Computed tomography (CT) of the neck was performed without intravenous contrast. Automated exposure control and iterative reconstruction technique were employed. The dose-length product was 532.85 mGy-cm. COMPARISON: None FINDINGS: Orbits are normal. Minimal fluid layering dependently in the bilateral maxillary sinuses. Mastoid air cells and middle ear cavities are clear. Submandibular and parotid glands are normal and symmetric. Thyroid gland is unremarkable. There are scattered normal-sized lymph nodes in the neck, no lymphadenopathy. No masses or foreign bodies identified. The vasculature is patent and normal in caliber. Airway is unremarkable. Superior mediastinum is unremarkable. Lung apices are normal. Mild lower cervical spondylosis. IMPRESSION: 1. No foreign bodies identified. 2. Minimal fluid layering dependently in the bilateral maxillary sinuses. Reviewed, dictated and finalized at location A.
[2025-04-17 07:50] VITALS: BP 192/96; PULSE 109; RESP 18; TEMP 36.8; O2SAT 98
--- OUTSIDE RECORDS SUMMARY | 2025-04-17 07:50 | XMS_ITS | Encounter Summary ---
Author Organization [facility] Address [address] [place] [address] Phone Care Team Providers Care Dental Assistant Name Role Phone Peace Pete MD Primary Care Provider [phone] [phone] Mague Bremudez APRN, POULTRY HATCHERY MANAGER Unavailable Herminio Jj MD Unavailable Reason for Visit * Reason Comments Medication Refill Encounter Details Date Type Department Care Team (Late st Contact Info) Description 08/02/2023 Refill [facility] #2 [place] [phone] Mague Bermudze APRN, POULTRY HATCHERY MANAGER #[address] [place] [address] Medication Refill Social History Tobacco Use Types [...] Mona Hebert RN - 08/04/2023 6:40 PM METAL MILLING MACHINE OPERATOR Medication failed the protocol, provider to [...] 04/01/23 Office Visit Mague Bermudez APRN, CNP [facility] [place] 02/14/23 Office Visit Mague Bermudez APRN, CNP [facility] Showing recent visits within past 365 days and meeting all other requirements Future Appointments No visits were found meeting these conditions. Showing future appointments within next 90 days and meeting all other requirements L MILLING MACHINE OPERATOR documented in this encounter Plan of Treatment Upcoming Encounters Date Type Department Care Team (Late st Contact Info) Description 07/28/2025 3:00 PM METAL MILLING MACHINE OPERATOR Office Visit [facility] - [place] [address] [place] [address] Germán Barrow MD [address] [address] documented as of this encounter Visit Diagnoses Not on filedocumented in this encounter Care Teams Dental Assistant Relationship Specialty Start Date End Date Peace Pete MD PCP - General Family Medicine 04/27/18 Mague Bermudez APRN, JOSEPH [address] [place] [address] Nurse Practitioner Advanced Practice Nurse 02/14/23 Herminio Jj MD #2 [place] [address] Consulting Physician Colon and Rectal Surgery 02/13/24 documented as of this encounter
--- OUTSIDE RECORDS SUMMARY | 2025-04-17 07:50 | XMS_ITS | Encounter Summary ---
Author Organization [facility] Address [address] [place] [address] Phone Care Team Providers Care Bridge Club Manager Name Role Phone Peace Pete MD Primary Care Provider [phone] Mague Bermudez APRN, THEATRE ARTS PROFESSOR Unavailable Herminio Jj MD Unavailable Reason for Visit * Reason Comments Medication Refill Encounter Details Date Type Department Care Team (Late st Contact Info) Description 05/07/2022 Refill [facility] #2 [place] [phone] Vianney Sauer MD #2 [place] [address] Medication Refill Social History Tobacco Use Types [...] st Contact Info) Description 07/28/2025 3:00 PM EMAIL ADMINISTRATOR Office Visit [facility] - [facility] [address] [place] [address] Germán Barrow MD 2 [facility] [address] [place] [address] documented as of this encounter Visit Diagnoses Not on filedocumented in this encounter Care Teams Bridge Club Manager Relationship Specialty Start Date End Date Peace Pete MD PCP - General Family Medicine 04/27/18 Mague Bermudez APRN, THEATRE ARTS PROFESSOR [address] [place] [address] Nurse Practitioner Advanced Practice Nurse 02/14/23 Herminio Jj MD #2 [facility] [address] [place] [address] Consulting Physician Colon and Rectal Surgery 02/13/24 documented as of this encounter
--- OUTSIDE RECORDS SUMMARY | 2025-04-17 07:50 | XMS_ITS | Encounter Summary ---
Author Organization [facility] Address [address] [place] [address] Phone Care Team Providers Care Control Systems Specialist Name Role Phone Peace Pete MD Primary Care Provider [phone] Mague Bermudez APRN, FROG CATCHER Unavailable Herminio Jj MD Unavailable Reason for Visit * Reason Comments Medication Refill Encounter Details Date Type Department Care Team (Late Contact Info) Description 03/28/2025 Refill [facility] #2 [place] [address] Mague Bermudez APRN, FROG CATCHER [address] [place] [address] Medication Refill Social History Tobacco Use Types [...] on file documented as of this encounter Plan of Treatment Upcoming Encounters Date Type Department Care Team (Late st Contact Info) Description 07/28/2025 3:00 PM MITER OPERATOR Office Visit [facility] - Gastroenterology [facility] #2 [place] [address] Germán Barrow MD 2 [facility] [address] [place] [address] documented as of this encounter Visit Diagnoses Diagnosis Gastroesophageal reflux disease, unspecified whether esophagitis present documented in this encounter Care Teams Control Systems Specialist Relationship Specialty Start Date End Date Peace Pete MD PCP - General Family Medicine 04/27/18 Mague Bermudez APRN, FROG CATCHER [address] [place] [address] Nurse Practitioner Advanced Practice Nurse 02/14/23 Herminio Jj MD #2 [facility] [address] [place] [address] Consulting Physician Colon and Rectal Surgery 02/13/24 documented as of this encounter
--- OUTSIDE RECORDS SUMMARY | 2025-04-17 07:50 | XMS_ITS | Encounter Summary ---
Author Organization [facility] Address [address] [place] [address] Phone Care Team Providers Care Debridging Machine Operator Name Role Phone Peace Pete MD Primary Care Provider [phone] Mague Bermudez APRN, FREELANCE ART DIRECTOR Unavailable Herminio Jj MD Unavailable Reason for Visit * Reason Comments Medication Refill Encounter Details Date Type Department Care Team (Late st Contact Info) Description 05/04/2023 Refill [facility] [address] [place] [phone] Vianney Sauer MD #2 [place] [address] Medication Refill Social History Tobacco Use Types [...] 04/01/23 Office Visit Mague Bermudez APRN, JOSEPH [facility] 02/14/23 Office Visit Mague Bermudez APRN, JOSEPH [facility] Showing recent visits within past 365 days and meeting all other requirements Future Appointments No visits were found meeting these conditions. Showing future appointments within next 90 days and meeting all other requirements documented in this encounter Plan of Treatment Upcoming Encounters Date Type Department Care Team (Late st Contact Info) Description 07/28/2025 3:00 PM RN PATIENT SERVICES Office Visit [facility] - [place] [address] [place] [address] Germán Barrow MD [address] [address] documented as of this encounter Visit Diagnoses Not on filedocumented in this encounter Care Teams Debridging Machine Operator Relationship Specialty Start Date End Date Peace Pete MD PCP - General Family Medicine 04/27/18 Mague Bermudez APRN, CNP #2 [place] [address] Nurse Practitioner Advanced Practice Nurse 6/30/23 Herminio Jj MD #2 [place] [address] Consulting Physician Colon and Rectal Surgery 02/13/24 documented as of this encounter
--- OUTSIDE RECORDS SUMMARY | 2025-04-17 07:50 | XMS_ITS | Encounter Summary ---
Author Organization [facility] Address [address] [place] [address] Phone Care Team Providers Care Mba Internship Name Role Phone Peace Pete MD Primary Care Provider +[phone] Mague Bermudez APRN, MAINTENANCE TECHNICIAN Unavailable Herminio Jj MD Unavailable Reason for Visit * Reason Comments Medication Refill Encounter Details Date Type Department Care Team (Late st Contact Info) Description 10/04/2024 Refill [facility] #2 [place] [phone] Mague Bermudez APRN, MAINTENANCE TECHNICIAN #2 [place] [address] Medication Refill Social History Tobacco Use Types [...] Telephone Encounter - Mona Hebert RN - 10/04/2024 9:05 AM INVESTIGATION DIVISION LIEUTENANT Medication refilled and signed [facility] for pediatric and adult patients. STIGATION DIVISION LIEUTENANT documented in this encounter Plan of Treatment Upcoming Encounters Date Type Department Care Team (Late st Contact Info) Description 07/28/2025 3:00 PM INVESTIGATION DIVISION LIEUTENANT Office Visit [facility] #[address] [place] [address] Germán Barrow MD 2 [facility] [address] [place] [address] documented as of this encounter Visit Diagnoses Diagnosis Gastroesophageal reflux disease, unspecified whether esophagitis present documented in this encounter Care Teams Mba Internship Relationship Specialty Start Date End Date Peace Pete MD PCP - General Family Medicine 04/27/18 Mague Bermudez APRN, MAINTENANCE TECHNICIAN [address] [place] [address] Nurse Practitioner Advanced Practice Nurse 02/14/23 Herminio Jj MD #2 [facility] [address] [place] [address] Consulting Physician Colon and Rectal Surgery 02/13/24 documented as of this encounter
--- OUTSIDE RECORDS SUMMARY | 2025-04-17 07:50 | XMS_ITS | Encounter Summary ---
Author Organization [facility] Address [address] [place] [address] Phone Care Team Providers Care Engineer Process Name Role Phone Peace Pete MD Primary Care Provider +[phone] Mague Bermudez APRN, HEAD PORTER Unavailable Herminio Jj MD Unavailable Reason for Visit * Reason Comments Medication Refill Encounter Details Date Type Department Care Team (Late st Contact Info) Description 12/29/2024 Refill [facility] #2 [place] [phone] Mague Bermudez APRN, HEAD PORTER [address] [place] [address] Medication Refill Social History Tobacco Use Types [...] Telephone Encounter - Mona Hebert RN - 12/29/2024 8:58 AM CDT Medication refilled and signed per [facility] chronic medication standing order for pediatric and adult patients. documented in this encounter Plan of Treatment Upcoming Encounters Date Type Department Care Team (Late st Contact Info) Description 07/28/2025 3:00 PM INSOLE FILLER Office Visit [facility] - Gastroenterology [facility] #2 [place] [address] Germán Barrow MD 2 [facility] [address] [place] [address] documented as of this encounter Visit Diagnoses Diagnosis Gastroesophageal reflux disease, unspecified whether esophagitis present documented in this encounter Care Teams Engineer Process Relationship Specialty Start Date End Date Peace Pete MD PCP - General Family Medicine 04/27/18 Mague Bermudez APRN, HEAD PORTER [address] [place] [address] Nurse Practitioner Advanced Practice Nurse 02/14/23 Herminio Jj MD #2 [facility] [address] [place] [address] Consulting Physician Colon and Rectal Surgery 02/13/24 documented as of this encounter
--- OUTSIDE RECORDS SUMMARY | 2025-04-17 07:50 | XMS_ITS | Clinical Summary ---
Author Organization [facility] Address [address] [address] Phone Care Team Providers Care Spine Supervisor Name Role Phone Peace Pete MD Primary Care Provider Mague Bermudez APRN, STUDY HALL SUPERVISOR Unavailable Herminio Jj MD Unavailable Allergies Active Allergy Reactions Criticality Noted Date Comments Metformin Unknown 04/23/2024 Pitavastatin Unknown 04/23/2024 Sulfa Antibiotics Rash 04/27/2018 Medications benazepril (LOTENSIN) 20 MG Tablet Take by mouth. 017 Active albuterol 108 (90 Base) MCG/ACT Aerosol Solution take by inhalation. Active triamcinolone (KENALOG) 0.1 % Cream Apply. Active Wheat Dextrin (BENEFIBER PO) Take by mouth. Active diphenhydrAMIN E (BENADRYL) 25 MG Capsule Take 25 mg by mouth every 6 hours as needed. Active Alogliptin Benzoate 25 MG Tablet 020 Active amLODIPine (NORVASC) 5 MG Tablet 019 Active JARDIANCE 10 MG Tablet 25 mg. 020 Active Polyethylene Glycol 3350 (MIRALAX PO) Take by mouth. Ac tive Multiple Vitamin (MULTI-VITAMIN PO) Take by mouth. Activ e Cholecalcifero l (VITAMIN D-3 PO) Take by mouth. Activ e Coenzyme Q10 100 MG Capsule Take by mouth. Active COMPOUNDED MEDICATIONIndi cations:Rectal fissure Nifedipine .4 Lidocaine 3% hydorcortisone 2.5 % Compounded creme Use Tid PRN rectal pain 1 Each 2 022 Active Additional Information Patient not taking.Reported on 04/15/2025 VITAMIN E PO Take by mouth. Ac tive other by Other route. IV guard Active Tradjenta 5 MG Tablet Take 5 mg by mouth every morning. 023 Active Hydrocortisone , Perianal, 2.5 % Cream APPLY RECTALLY DAILY NEEDED FOR HEMORRHOIDS 024 Active omeprazole (PriLOSEC) 20 MG CAPSULE DELAYED RELEASEIndicat ions:Gastroeso phageal reflux disease, unspecified whether esophagitis present TAKE 2 CAPSULES BY MOUTH EVERY DAY 60 Capsule 2 025 Active Glyxambi 25-5 MG Tablet Take 1 Tablet by mouth every morning. 025 Active otaer-3-anly ethyl esters 1 g Capsule 025 Active sucralfate (CARAFATE) 1 GM TabletIndicati ons:Gastroesop hageal reflux disease, unspecified whether esophagitis present Take 1 Tablet by mouth 3 times daily. Take one hour before meals and at bedtime 90 Tablet 025 Active hydrocortisone (ANUSOL-HC) 25 MG SuppositoryInd ications:Hemor rhoids, unspecified hemorrhoid type 25 mg by Rectal route every 12 hours. 30 Suppository 025 Active amitriptyline (ELAVIL) 10 MG TabletIndicati ons:LLQ pain Take 1 Tablet by mouth nightly. 90 Tablet 3 025 Active dicyclomine (BENTYL) 20 MG Tablet Take 1 Tablet by mouth 2 times daily. 180 Tablet 1 023 2024 Discontinued(T herapy completed) hydrocortisone (ANUSOL-HC) 25 MG SuppositoryInd ications:Hemor rhoids, unspecified hemorrhoid type 25 mg by Rectal route every 12 hours. 30 Suppository 024 2024 Discontinued omeprazole (PriLOSEC) 20 MG CAPSULE DELAYED RELEASEIndicat ions:Gastroeso phageal reflux disease, unspecified whether esophagitis present TAKE 2 CAPSULES BY MOUTH EVERY DAY 60 Capsule 2 025 2024 Discontinued amitriptyline (ELAVIL) 10 MG Tablet TAKE 1 TABLET BY MOUTH EVERY DAY AT NIGHT 90 Tablet 025 2024 Discontinued(R eorder) hydrocortisone (ANUSOL-HC) 25 MG SuppositoryInd ications:Hemor rhoids, unspecified hemorrhoid type 25 MG BY RECTAL ROUTE EVERY 12 HOURS. NOT COVERED 30 Suppository 025 2024 Discontinued(R eorder) Active Problems Problem Noted Date Diagnosed Date Hemorrhoids 09/06/2020 Rectal fissure 02/28/2020 Irritable bowel syndrome with constipation 08/20 Overview (02/28/2020): Last Assessment & Plan: Dorinad helped mostly for his constipation but has been taking once daily, recommend to increase up to 3 times daily as needed Add bentyl prn He could not afford linzess rtc 6-8 months Encounters Date Type Department Care Team Description 04/15/2025 3:00 PM CDT Office Visit [facility] [address] [place] [phone] Mague Bermudez APRN, CNP Gastroesophageal reflux disease, unspecified whether esophagitis present (Primary Dx); Hemorrhoids, unspecified hemorrhoid type; LLQ pain Discharge Disposition: Discharged to home or Selfcare 04/13/2025 Travel 04/05/2025 Refill [facility] [address] [place] [phone] Mague Bermudez APRN, CNP Medication Refill 04/03/2025 Refill [facility] [address] [place] [address] Mague Bermudez APRN, CNP Medication Refill 03/28/2025 Refill [facility] [address] [place] [address] Mague Bermudez APRN, CNP Medication Refill 01/22/2025 [facility] [address] [place] [address] Mague Bermudez APRN, CNP Medication Refill from Last 3 Months Immunizations Immunization Administration Dates Next Due Influenza Vaccine, Quadrivalent, PF 11/0 03/2021,06/15/2020,06/14/2020,05/19,08/12/2018 Pneumococcal conjugate PCV20 , polysaccharide [id number] conjugate, adjuvant, PF 03/10/2022 Td Vaccine (preservative [...] Sign Reading Time Taken Comments Blood Pressure 158/76 04/15/2025 3:05 PM CDT Pulse 106 04/15/2025 3:05 PM CDT Temperature 36.4 C (97.5 F) 04/15/2025 3:05 PM CDT Respiratory Rate 16 04/15/2025 3:05 PM CDT Oxygen Saturation 99% 04/15/2025 3:05 PM CDT Inhaled Oxygen Concentration - - Weight 120.6 kg (265 lb 12.8 oz) 04/15/2025 3:05 PM CDT Height 177.8 cm (5' 10) 04/15/2025 3:05 PM CDT Body Mass Index 38.14 04/15/2025 3:05 PM CDT Plan of Treatment Upcoming Encounters Date Type Department Care Team (Late st Contact Info) Description 07/28/2025 3:00 PM ENTERTAINMENT CENTRE MANAGER Office Visit [facility] - [place] [address] [place] [address] Germán Barrow MD [address] [address] Health Maintenance Due Date Last Done Comments Hepatitis C Virus (HCV) Screening 1988 Human Papillomavirus (HPV) Immunization (1 - 3-dose SCDM series) 12/15/2015 Influenza Immunization (#1) 04/18/202508/19, 08/02/2023, 07/19/2022, Additional history exists Colonoscopy 2033 09/23/2019 Colorectal Cancer Screening 2033 Respiratory Syncytial Virus (RSV) Immunization (Adult) (1 - 1-dose 75+ series) 12/15/2063 Hepatitis B Immunization Completed 999, 12/08/1998, 09/28/1998 Meningococcal Immunization (ACWY) Completed 11/17/2006 TdaP Immunization Completed 11/17/2006 DTaP/Tdap/Td Immunization Discontinued 2021, 03/10/2022, 11/17/2006, Additional history exists Pneumococcal Immunization Combined Aged Out 03/10/2022, 06/04/2007, 05/27/2000 No longer eligible based on patient's age to complete this topic SARS-COV-2 Immunization Completed 09/07/19 25, 08/02/2023, 12/22/2021, Additional history exists Rotavirus Immunization Aged Out No lo nger [...] Recently Relevant to Health Maintenance Insurance MEDICAID [place] Care Teams Spine Supervisor Relationship Specialty Start Date End Date Peace Pete MD PCP - General Family Medicine 04/27/18 Mague Bermudez APRN, STUDY HALL SUPERVISOR [address] [place] [address] Nurse Practitioner Advanced Practice Nurse 02/14/23 Herminio Jj MD [address] [address] Consulting Physician Colon and Rectal Surgery 02/13/24
--- OUTSIDE RECORDS SUMMARY | 2025-04-17 07:50 | XMS_ITS | Encounter Summary ---
Author Organization [facility] Address [address] [place] [address] Phone Care Team Providers Care Mill Helper Name Role Phone Peace Pete MD Primary Care Provider +1 [phone] Mague Bermudez APRN, TELEVISION AGENT Unavailable Herminio Jj MD Unavailable Reason for Visit * Reason Comments Medication Refill Encounter Details Date Type Department Care Team (Late st Contact Info) Description 10/23/2022 [facility]ill [facility] [address]2 [place] [phone] Vianney Sauer MD [address]2 [place] [address] Medication Refill Social History Tobacco Use Types [...] Mona Hebert RN - 10/23/2022 10:12 AM DISPATCH COORDINATOR Pharmacy requesting refill of: Requested Prescriptions Pending Prescriptions Disp Refills ??? amitriptyline (ELAVIL) 10 MG Tablet [Pharmacy Med Name: AMITRIPTYLINE HCL 10 MG TAB] 90 Tablet 0 Sig: TAKE 1 TABLET BY MOUTH NIGHTLY Last fill: 07/26/2022 Patients last OV with GI: 04/10/2022 Next Office Visit with GI: None scheduled. Medication failed protocol, it cannot be delegated. Amitriptyline order pended, please review. ATCH COORDINATOR documented in this encounter Plan of Treatment Upcoming Encounters Date Type Department Care Team (Late st Contact Info) Description 07/28/2025 3:00 PM DISPATCH COORDINATOR Office Visit [facility] [address] [place] [address] Germán Barrow MD 2 [facility] [address] [place] [address] documented as of this encounter Visit Diagnoses Not on filedocumented in this encounter Care Teams Mill Helper Relationship Specialty Start Date End Date Peace Pete MD PCP - General Family Medicine 04/27/18 Mague Bermudez APRN, TELEVISION AGENT [address] [place] [address] Nurse Practitioner Advanced Practice Nurse 02/14/23 Herminio Jj MD #2 [facility] [address] [place] [address] Consulting Physician Colon and Rectal Surgery 02/13/24 documented as of this encounter
--- OUTSIDE RECORDS SUMMARY | 2025-04-17 07:50 | XMS_ITS | Encounter Summary ---
Author Organization [facility] Address [address] [place] [address] Phone Care Team Providers Care Vault Worker Name Role Phone Peace Pete MD Primary Care Provider [phone] [phone] Mague Bermudez APRN, MORTGAGE LOAN INTERVIEWER Unavailable Herminio Jj MD Unavailable Reason for Visit * Reason Comments Medication Refill Encounter Details Date Type Department Care Team (Late st Contact Info) Description 10/22/2023 [facility]ill [facility]2 [place] [phone] Mague Bermudez APRN, MORTGAGE LOAN INTERVIEWER [address] [place] [address] Medication Refill Social History Tobacco Use Types [...] Mona Hebert RN - 10/23/2023 8:45 AM ON SITE SOIL EVALUATOR Medication failed the protocol, provider to review [...] Visit Mague Bermudez APRN, CNP [facility] [place] 02/14/23 Office Visit Mague Bermudez APRN, CNP [facility] [place] Showing recent visits within past 365 days and meeting all other requirements Future Appointments No visits were found meeting these conditions. Showing future appointments within next 90 days and meeting all other requirements SITE SOIL EVALUATOR documented in this encounter Plan of Treatment Upcoming Encounters Date Type Department Care Team (Late st Contact Info) Description 07/28/2025 3:00 PM ON SITE SOIL EVALUATOR [facility] - [place] [address] [place] [address] Germán Barrow MD [address] [address] documented as of this encounter Visit Diagnoses Not on filedocumented in this encounter Care Teams Vault Worker Relationship Specialty Start Date End Date Peace Pete MD PCP - General Family Medicine 04/27/18 Mague Bermudez APRN, JOSEPH [address] [place] [address] Nurse Practitioner Advanced Practice Nurse 02/14/23 Herminio Jj MD [address]2 [place] [address] Consulting Physician Colon and Rectal Surgery 02/13/24 documented as of this encounter
--- OUTSIDE RECORDS SUMMARY | 2025-04-17 07:50 | XMS_ITS | Encounter Summary ---
Author Organization [facility] Address [address] [place] [address] Phone Care Team Providers Care Cable Inspector Name Role Phone Peace Pete MD Primary Care Provider [phone] [phone] Mague Bermudez APRN, POURER CRANE LADLE Unavailable Herminio Jj MD Unavailable Reason for Visit * Reason Comments Medication Refill Encounter Details Date Type Department Care Team (Late st Contact Info) Description 09/29/2023 Refill [facility] #2 [place] [phone] Mague Bermudez APRN, POURER CRANE LADLE [address] [place] [address] Medication Refill Social History Tobacco Use Types [...] Mona Hebert RN - 10/02/2023 4:07 PM ENERGY TRADER Spoke with patient, he is no longer taking pantoprazole and famotidine. He is asking for a refill of the omeprazole. Order pended, please review pended order. GY TRADER * Telephone Encounter - Mona Hebert RN - 10/02/2023 8:58 AM ENERGY TRADER Left message to call back. Pantoprazole order noted to be placed by Ferny Bermudez NP on 04/01/2023. GY TRADER * Telephone Encounter - Mona Hebert RN - 10/02/2023 8:54 AM ENERGY TRADER Pharmacy requesting refill of: Requested Prescriptions Pending [...] discontinued on 04/01/2023 by Mague Bermudez APRN, POURER CRANE LADLE for thefollowing reason: Alternate therapy. Renewing this prescription may not be appropriate Patients last OV with GI: 04/01/2023 Next Office Visit with GI: None scheduled, recall noted. GY TRADER documented in this encounter Plan of Treatment Upcoming Encounters Date Type Department Care Team (Late st Contact Info) Description 07/28/2025 3:00 PM ENERGY TRADER [facility] [address] [place] [address] Germán Barrow MD [address] [address] documented as of this encounter Visit Diagnoses Diagnosis Gastroesophageal reflux disease, unspecified whether esophagitis present documented in this encounter Care Teams Cable Inspector Relationship Specialty Start Date End Date Peace Pete MD PCP - General Family Medicine 04/27/18 Mague Bermudez APRN, POURER CRANE LADLE [address] [place] [address] Nurse Practitioner Advanced Practice Nurse 02/14/23 Herminio Jj MD #[address] [address] Consulting Physician Colon and Rectal Surgery 02/13/24 documented as of this encounter
--- OUTSIDE RECORDS SUMMARY | 2025-04-17 07:50 | XMS_ITS | Encounter Summary ---
Author Organization [facility] Address [address] [place] [address] Phone Care Team Providers Care Accounting Teacher Name Role Phone Peace Pete MD Primary Care Provider [phone] [phone] Mague Bermudez APRN, SECURITY SYSTEMS INTEGRATOR Unavailable Herminio Jj MD Unavailable Reason for Visit * Reason Comments Medication Refill Encounter Details Date Type Department Care Team (Late st Contact Info) Description 01/23/2023 [facility]ill [facility] [address] [place] [phone] Vianney Sauer MD [address] [place] [address] Medication Refill Social History Tobacco Use Types [...] 04/10/22 Office Visit Naila Courtney Gabbi, PAC [facility] [place] Showing recent visits within past 365 days and meeting all other requirements Future Appointments No visits were found meeting these conditions. Showing future appointments within next 90 days and meeting all other requirements documented in this encounter Plan of Treatment Upcoming Encounters Date Type Department Care Team (Late st Contact Info) Description 07/28/2025 3:00 PM SUPERVISOR OF INSTRUCTION [facility] Visit [facility] [address] [place] [address] Germán Barrow MD [address] [address] documented as of this encounter Visit Diagnoses Not on filedocumented in this encounter Care Teams Accounting Teacher Relationship Specialty Start Date End Date Peace Pete MD PCP - General Family Medicine 04/27/18 Mague Bermudez APRN, SECURITY SYSTEMS INTEGRATOR [address] [place] [address] Nurse Practitioner Advanced Practice Nurse 02/14/23 Herminio Jj MD [facility] [address] Consulting Physician Colon and Rectal Surgery 02/13/24 documented as of this encounter
--- OUTSIDE RECORDS SUMMARY | 2025-04-17 07:50 | XMS_ITS | Clinical Summary ---
Author Organization [facility] Address [address] [place] [address] Care Team Providers Care Top Precipitator Operator Helper Name Role Phone Julio Pete MD Primary Care Provider [phone] Source Comments [facility] [employer],non-owned Affiliates and Associated Physician Practices is amultiple site organization consisting of ambulatory clinics and hospital sitesin [place], [place], [place] and [place]. This disclosure is being madepursuant to the Care Everywhere program and may not contain all information available regarding this patient. Last updated 18.[facility] [employer] Social History Tobacco Use Types Packs/Day Years Used Date Smoking Tobacco: Never Assessed Sex and Gender Information Value Date Recorded Sex Assigned at Not on file Legal Sex Male 5:38 AM CELL TUBER MACHINE Gender Identity Not on file Sexual Orientation Not on file Plan of Treatment Health Maintenance Due Date Last Done Comments HIV SCREENING 12/15/2003 HEPATITIS C SCREENING 12/10/2006 DTAP/TDAP/TD VACCINES (1 - Tdap) 12/15/2007 HEPATITIS B VACCINE (1 of 3 - 19+ 3-dose series) 12/15/2007 HPV VACCINE (1 - 3-dose SCDM series) 12/15/2015 COVID-19 VACCINE ( - 2023-2 5 season) 2024 DEPRESSION SCREENING 08/18/2024 INFLUENZA VACCINE (#1) 2025 ZOSTER VACCINE (1 of 2) 2038 HIB VACCINE Aged Out No longer eligi ble based on patient's age to complete this topic MENINGOCOCCAL (Group B) VACC INE SHARED DECISION-MAKING Aged Out No longer eligibl e based on patient's age to complete this topic MENINGOCOCCAL GROUPS A/C/Y/W VACCINE Aged Out No longer eligible b ased on patient's age to complete this topic PNEUMOCOCCAL VACCINE Aged Out No long er eligible based on patient's age to complete this topic Insurance [facility] Care Teams Top Precipitator Operator Helper Relationship Specialty Start Date End Date Julio Pete MD [address] [place] [phone] PCP - General 09/10/18
--- OUTSIDE RECORDS SUMMARY | 2025-04-17 07:50 | XMS_ITS | Encounter Summary ---
Author Organization [facility] Address [address] [place] [address] Phone Care Team Providers Care Supervisor Refractory Products Name Role Phone Peace Pete MD Primary Care Provider [phone] [phone] Mague Bermudez APRN, IMPROVEMENT ADVISOR Unavailable Herminio Jj MD Unavailable Reason for Visit * Reason Comments Medication Refill Encounter Details Date Type Department Care Team (Late st Contact Info) Description 02/07/2022 Refill [facility] [address]2 [place] [phone] Vianney Sauer MD #2 [place] [address] Medication Refill Social History Tobacco Use Types [...] st Contact Info) Description 07/28/2025 3:00 PM DETAILER PHARMACEUTICALS Office Visit [facility] [address] [place] [address] Germán Barrow MD 2 [facility] [address] [place] [address] documented as of this encounter Visit Diagnoses Not on filedocumented in this encounter Care Teams Supervisor Refractory Products Relationship Specialty Start Date End Date Peace Pete MD PCP - General Family Medicine 04/27/18 Mague Bermudez APRN, IMPROVEMENT ADVISOR [address] [place] [address] Nurse Practitioner Advanced Practice Nurse 02/14/23 Herminio Jj MD #2 [facility] [address] [place] [address] Consulting Physician Colon and Rectal Surgery 02/13/24 documented as of this encounter
--- OUTSIDE RECORDS SUMMARY | 2025-04-17 07:50 | XMS_ITS | Encounter Summary ---
Author Organization [facility] Address [address] [place] [address] Phone Care Team Providers Care Bleach Analyst Name Role Phone Peace Pete MD Primary Care Provider [phone] [phone] Mague Bermudez APRN, ENGINEERING DRAFTER Unavailable Herminio Jj MD Unavailable Reason for Visit * Reason Comments Medication Refill Encounter Details Date Type Department Care Team (Late st Contact Info) Description 01/19/2024 Refill [facility] #2 [place] [address] Mague Bermudez, MARCIN, ENGINEERING DRAFTER [address] [place] [address] Medication Refill Social History Tobacco Use Types [...] 01/19/2024 9:18 AM CDT Received fax from [facility] pharmacy that the Hydrocortisone AC 25 mg [...] 01/14/24 Office Visit [facility] [place] [facility]/23 Office Visit Mague Bermudez APRN, CNP [facility] [place] 02/14/23 Office Visit Mague Bermudez APRN, JOSEPH [facility] [place] Showing recent visits within past 365 days and meeting all other requirements Future Appointments No visits were found meeting these conditions. Showing future appointments within next 90 days and meeting all other requirements documented in this encounter Plan of Treatment Upcoming Encounters Date Type Department Care Team (Late st Contact Info) Description 07/28/2025 3:00 PM TELEVISION NEWS PHOTOGRAPHER [facility] Visit [facility] - [place] [address] [place] [address] Germán Barrow MD 2 [facility] [address] [address] documented as of this encounter Visit Diagnoses Not on filedocumented in this encounter Care Teams Bleach Analyst Relationship Specialty Start Date End Date Peace Pete MD PCP - General Family Medicine 04/27/18 Mague Bermudez APRN, ENGINEERING DRAFTER [address] [place] [address] Nurse Practitioner Advanced Practice Nurse 02/14/23 Herminio Jj MD #[address] [address] Consulting Physician Colon and Rectal Surgery 02/13/24 documented as of this encounter
--- OUTSIDE RECORDS SUMMARY | 2025-04-17 07:50 | XMS_ITS | Encounter Summary ---
Author Organization [facility] Address [address] [place] [address] Phone Care Team Providers Care Band Top Maker Name Role Phone Peace Pete MD Primary Care Provider [phone] [phone] Mauge Bermudez APRN, FLORIST MANAGER Unavailable Herminio Jj MD Unavailable Reason for Visit * Reason Comments Medication Refill Encounter Details Date Type Department Care Team (Late st Contact Info) Description 07/25/2022 Refill [facility] #2 [place] [phone] Vianney Sauer MD #2 [place] [address] Medication Refill Social History Tobacco Use Types [...] Refill pended. Please sign if you agree. OR SAS DEVELOPER documented in this encounter Plan of Treatment Upcoming Encounters Date Type Department Care Team (Late st Contact Info) Description 07/28/2025 3:00 PM SENIOR SAS DEVELOPER Office Visit [facility] #2 [place] [address] Germán Barrow MD 2 [facility] [address] [place] [address] documented as of this encounter Visit Diagnoses Not on filedocumented in this encounter Care Teams Band Top Maker Relationship Specialty Start Date End Date Peace Pete MD PCP - General Family Medicine 04/27/18 Mague Bermudez APRN, FLORIST MANAGER #2 [place] [address] Nurse Practitioner Advanced Practice Nurse 02/14/23 Herminio Jj MD #2 [facility] [address] [place] [address] Consulting Physician Colon and Rectal Surgery 02/13/24 documented as of this encounter
--- NOTE | 2025-04-17 07:57 | ED.SKABFB ---
HPI - Skin/Abscess/Foreign Bdy General Chief complaint: Skin/Abscess/Foreign Body Stated complaint: foreign body in throat Time Seen by Provider: 04/17/25 07:53 Source: patient Mode of arrival: ambulatory Limitations: no limitations History of Present Illness HPI narrative: Patient is a 34-year-old male who started Carafate today and feels as the pill got stuck in the oropharynx but upward behind the nasal passage to the left. No shortness of breath. No coughing. No difficulty breathing. He points more to the left neck region however. MD complaint: foreign body ( Carafate tablet in the posterior oropharynx possible) Onset (ago): hour(s) ( 1) Location: face and neck Severity: mild Severity scale (1-10): 1 Quality: dull and constant Pain Consistency: constant Relieving factors: none Exacerbating factors: none Context: other ( patient has swallowed his large care feet tablet and feels that it is stuck in the back of the throat/ behind the nasal passage more so on the left) Associated symptoms: denies other symptoms Treatments prior to arrival: other ( Nasal irrigation) Related Data Home Medications ?Medication ?Instructions ?Recorded ?Confirmed ?Last Taken ?Type amitriptyline 10 mg tablet 10 mg PO HS 09/20/19 11/16/24 09/22/19 23:55 History omeprazole 20 mg capsule,delayed 20 mg PO DAILY 11/19/23 11/16/24 Unknown History release coQ10 (ubiquinol) 100 mg capsule 100 mg PO BID 11/16/24 11/16/24 Unknown History (Qunol Simeon CoQ10) vitamin E (dl, acetate) 180 mg 180 mg PO DAILY 11/16/24 11/16/24 Unknown History (400 unit) capsule sucralfate 1 gram tablet 1 g PO BID 04/17/25 Unknown History Allergies Allergy/AdvReac Type Severity Reaction Status Date / Time Sulfa (Sulfonamide Allergy Intermediate RASH Verified 04/17/25 08:01 Antibiotics) gemfibrozil AdvReac Severe muscle Verified 04/17/25 08:01 aches metformin AdvReac severe gi Verified 04/17/25 08:01 upset pitavastatin (From Livalo) AdvReac leg cramps Verified 04/17/25 08:01 pravastatin AdvReac muscle Verified 04/17/25 08:01 cramping, gi upset simvastatin AdvReac muscle Verified 04/17/25 08:01 cramping Review of Systems Review of Systems: All systems reviewed & are unremarkable except as noted in HPI and below Constitutional: Constitutional: Reports no additional constitutional complaints Eyes: Eyes: Reports no additional eye complaints ENT: Reports system reviewed and no additional complaints, except as documented Cardiovascular: Cardiovascular: Reports no additional cardiovascular complaints Respiratory: Respiratory: Reports no additional respiratory complaints Gastrointestinal: Gastrointestinal: Reports no additional gastrointestinal complaints Genitourinary: Genitourinary: Reports no additional male genitourinary complaints Musculoskeletal: Musculoskeletal: Reports no additional musculoskeletal complaints Integumentary/Breasts: Skin/Breast: Reports system reviewed and no additional complaints, except as docu Neurologic: Reports system reviewed and no additional complaints, except as documented Psychiatric: Psychiatric: Reports no additional psychiatric complaints Endocrine: Endocrine: Reports no additional endocrine complaints Hematologic/Lymphatic: Hematologic/Lymphatic: Reports no additional hematologic/lymphatic complaints Allergic/Immunologic: Allergic/Immunologic: Reports no additional allergic/immunologic complaints PMFSH Past Medical History Medical History Pilonidal cyst Plantar fascial fibromatosis Prostatitis, acute Eczema Asthma History of anal fissures Mixed hyperlipidemia Chronic constipation Essential hypertension Gastro-esophageal reflux Obstructive sleep apnea (adult) (pediatric) Surgical History Surgical History Hx of colonoscopy 2.6.20 hyperplastic polyp, acute anal fissure, internal hemmies. / ( klucka) Hx of esophagogastroduodenoscopy Hx of sinus surgery Family History Family History Mother Diabetes mellitus Family history of rheumatoid arthritis Family history of allergic disorder Asthma Father Hypertension Family history of colonic diverticulitis Heart disease Grandparent Cancer Diabetes mellitus Other Family history of malignant neoplasm Family history of mental disorder Family history of pancreatic disease Social History Social History Social History: Caffeine-none Smoking status: Never smoker Alcohol intake: never Substance use: never Substance use type: does not use Lack of Transportation: No Lack of Food: Never True Current Housing: I Have Housing Concerned About Future Housing: No Difficulty Paying Gas/Electric Bills: No Difficulty Paying for Meds: Decline to Answer Currently Unemployed: Decline to Answer Education: Decline to Answer Difficulty w/ Childcare or Family Care: No Living arrangements: alone Occupation/Education: unemployed Exam Const: General: healthy appearing Nutritional Appearance: well nourished Orientation/consciousness: patient oriented x3 HENMT: Head: normal to inspection Ears: external ears normal Face/Nose/Sinus: Normal external nose present Throat: posterior oropharynx normal Other: examination fails to see any foreign body through the nasal passages or posterior oropharynx Eyes: Conjunctivae: conjunctivae normal Pupils: Equal, round and reactive pupils present EOM: EOMs intact bilaterally Neck: Neck: normal visual inspection Chest: Chest palpation & inspection: normal inspection of the chest Resp: Effort & Inspection: normal respiratory effort and not labored Auscultation: clear to auscultation bilaterally and no crackles Cardio: Rate: regular rate Rhythm: regular rhythm Heart sounds: no murmurs GI: Inspection: non-distended GI Palp: Yes Soft to palpation and No Tenderness to palpation present (GI) Auscultation: normal bowel sounds : General: Yes bladder normal to palpation Back/Spine/Pelvis: Back: no CVA tenderness Skin: General skin exam: normal color Rashes: no rashes Wounds: no wounds Neuro: General: patient oriented x3, moves all extremities and no meningeal signs Extrem: General: normal to inspection Psych: Mental Status: mental status grossly normal Affect: normal affect Attitude: cooperative Course Vital Signs Vital signs: Vital Signs Temperature 36.8 C 04/17/25 07:50 Pulse Rate 109 H 04/17/25 07:50 Respiratory Rate 18 04/17/25 07:50 Blood Pressure 192/96 H 04/17/25 07:50 Pulse Oximetry 98 04/17/25 07:50 Oxygen Delivery Room Air 04/17/25 07:50 Temperature 36.8 C 04/17/25 07:50 Pulse Rate 109 H 04/17/25 07:50 Respiratory Rate 18 04/17/25 07:50 Blood Pressure 192/96 H 04/17/25 07:50 Pulse Oximetry 98 04/17/25 07:50 Oxygen Delivery Room Air 04/17/25 07:50 MDM - Skin/Abscess/Foreign Bdy MDM Narrative Medical decision making narrative: patient is a 34-year-old male with a possible foreign body of Carafate in the posterior oropharynx on the left. CT soft tissue. Exam negative. ENT p.r.n.. Imaging Data Attestation: I personally reviewed and interpreted this imaging study as follows: Radiologist's impression: CT scan of the soft tissue neck is negative for foreign bodies Discharge Plan Discharge Clinical Impression: Foreign body sensation in throat Patient Disposition: Home Condition: Stable Instructions: Esophageal Foreign Body (ED) Additional Instructions: please monitor for signs of infection would be yellow or green pus discharge from either the nose or the mouth as phlegm. I do not expect things to get worse and I expect them to get only better over the next few days. Come back to the ER with concerns of worsening symptoms. Patient Language: Azeri Prescriptions: No Action sucralfate 1 gram tablet 1 g PO BID omeprazole 20 mg capsule,delayed release(DR/EC) 20 mg PO DAILY hydrocortisone acetate [Anusol-HC] 25 mg suppository 25 mg RECTAL BID Qty: 12 1RF vitamin E (dl, acetate) 180 mg (400 unit) capsule 180 mg PO DAILY coQ10 (ubiquinol) [Qunol Simeon CoQ10] 100 mg capsule 100 mg PO BID icosapent ethyl [Vascepa] 0.5 gram capsule 2 g PO BID Qty: 240 6RF omega-3 acid ethyl esters [Lovaza] 1 gram capsule 1 cap PO DAILY Qty: 60 6RF amitriptyline 10 mg tablet 10 mg PO HS Glyxambi 25-5 mg tablet 1 tablet PO QAM Qty: 90 3RF hydrocortisone 2.5 % cream with perineal applicator See Rx Instructions .ROUTE .COMPLEX Qty: 30 3RF Dose Instruction: APPLY RECTALLY DAILY NEEDED FOR HEMORRHOIDS Rx Instructions: APPLY RECTALLY DAILY NEEDED FOR HEMORRHOIDS benazepril 20 mg tablet See Rx Instructions .ROUTE .COMPLEX Qty: 90 1RF Dose Instruction: TAKE 1 TABLET BY MOUTH EVERY DAY Rx Instructions: TAKE 1 TABLET BY MOUTH EVERY DAY amlodipine 5 mg tablet See Rx Instructions .ROUTE .COMPLEX Qty: 90 1RF Dose Instruction: TAKE 1 TABLET BY MOUTH EVERY DAY Rx Instructions: TAKE 1 TABLET BY MOUTH EVERY DAY Follow-up/Referrals: UNKNOWN,DOCTOR [Non-Staff] Time of Disposition: 10:49
--- OUTSIDE RECORDS SUMMARY | 2025-04-17 08:29 | XMS_ITS | Encounter Summary ---
Author Organization [facility] Address [address] [place] [address] Phone Care Team Providers Care Deckhand Tuna Boat Name Role Phone Peace Pete MD Primary Care Provider [phone] Mague Bermudez APRN, SEMICONDUCTOR PROCESSING GROUP LEADER Unavailable Herminio Jj MD Unavailable Reason for Visit * Reason Comments Medication Refill Encounter Details Date Type Department Care Team (Late st Contact Info) Description 01/23/2023 Refill [facility] #2 [place] [phone] Vianney Sauer MD #2 [place] [address] Medication Refill Social History Tobacco Use Types [...] 04/10/22 Office Visit Naila Courtney Gabbi, PAC [facility] [place] Showing recent visits within past 365 days and meeting all other requirements Future Appointments No visits were found meeting these conditions. Showing future appointments within next 90 days and meeting all other requirements documented in this encounter Plan of Treatment Upcoming Encounters Date Type Department Care Team (Late st Contact Info) Description 07/28/2025 3:00 PM URBAN ANTHROPOLOGIST Office Visit [facility] [address]2 [place] [address] Germán Barrow MD [address] [address] documented as of this encounter Visit Diagnoses Not on filedocumented in this encounter Care Teams Deckhand Tuna Boat Relationship Specialty Start Date End Date Peace Pete MD PCP - General Family Medicine 04/27/18 Mague Bermudez APRN, SEMICONDUCTOR PROCESSING GROUP LEADER [address]2 [place] [address] Nurse Practitioner Advanced Practice Nurse 02/14/23 Herminio Jj MD [facility] [address] Consulting Physician Colon and Rectal Surgery 02/13/24 documented as of this encounter
--- OUTSIDE RECORDS SUMMARY | 2025-04-17 08:29 | XMS_ITS | Encounter Summary ---
Author Organization [facility] Address [address] [place] [address] Phone Care Team Providers Care Pharmacy District Manager Name Role Phone Peace Pete MD Primary Care Provider [phone] Mague Bermudez APRN, MEDICAL INSURANCE CODER Unavailable Herminio Jj MD Unavailable Reason for Visit * Reason Comments Medication Refill Encounter Details Date Type Department Care Team (Late st Contact Info) Description 02/07/2022 Refill [facility] #2 [place] [phone] Vianney Sauer MD #2 [place] [address] Medication Refill Social History Tobacco Use Types [...] st Contact Info) Description 07/28/2025 3:00 PM SUPPLIER SPECIALIST Office Visit [facility] #2 [place] [address] Germán Barrow MD 2 [facility] [address] [place] [address] documented as of this encounter Visit Diagnoses Not on filedocumented in this encounter Care Teams Pharmacy District Manager Relationship Specialty Start Date End Date Peace Pete MD PCP - General Family Medicine 04/27/18 Mague Bermudez APRN, MEDICAL INSURANCE CODER [address] [place] [address] Nurse Practitioner Advanced Practice Nurse 02/14/23 Herminio Jj MD #2 [facility] [address] [place] [address] Consulting Physician Colon and Rectal Surgery 02/13/24 documented as of this encounter
--- OUTSIDE RECORDS SUMMARY | 2025-04-17 08:29 | XMS_ITS | Encounter Summary ---
Author Organization [facility] Address [address] [place] [address] Phone Care Team Providers Care Technology Education Instructor Name Role Phone Peace Pete MD Primary Care Provider [phone] Mague Bermudez APRN, DIRECTOR OF SOFTWARE ENGINEERING Unavailable Herminio Jj MD Unavailable Reason for Visit * Reason Comments Medication Refill Encounter Details Date Type Department Care Team (Late st Contact Info) Description 10/23/2022 Refill [facility] #2 [place] [phone] Vianney Sauer MD #2 [place] [address] Medication Refill Social History Tobacco Use Types [...] Mona Hebert RN - 10/23/2022 10:12 AM ROUGE MIXER Pharmacy requesting refill of: Requested Prescriptions Pending Prescriptions Disp Refills ??? amitriptyline (ELAVIL) 10 MG Tablet [Pharmacy Med Name: AMITRIPTYLINE HCL 10 MG TAB] 90 Tablet 0 Sig: TAKE 1 TABLET BY MOUTH NIGHTLY Last fill: 07/26/2022 Patients last OV with GI: 04/10/2022 Next Office Visit with GI: None scheduled. Medication failed protocol, it cannot be delegated. Amitriptyline order pended, please review. E MIXER documented in this encounter Plan of Treatment Upcoming Encounters Date Type Department Care Team (Late st Contact Info) Description 07/28/2025 3:00 PM ROUGE MIXER Office Visit [facility] - Gastroenterology [facility] #2 [place] [address] Germán Barrow MD 2 [facility] [address] [place] [address] documented as of this encounter Visit Diagnoses Not on filedocumented in this encounter Care Teams Technology Education Instructor Relationship Specialty Start Date End Date Peace Pete MD PCP - General Family Medicine 04/27/18 Mague Bermudez APRN, DIRECTOR OF SOFTWARE ENGINEERING [address] [place] [address] Nurse Practitioner Advanced Practice Nurse 02/14/23 Herminio Jj MD #2 [facility] [address] [place] [address] Consulting Physician Colon and Rectal Surgery 02/13/24 documented as of this encounter
--- OUTSIDE RECORDS SUMMARY | 2025-04-17 08:29 | XMS_ITS | Encounter Summary ---
Author Organization [facility] Address [address] [place] [address] Phone Care Team Providers Care Finishing Frame Runner Name Role Phone Peace Pete MD Primary Care Provider [phone] Mague Bermudez APRN, CPR AMBULANCE DRIVER Unavailable Herminio Jj MD Unavailable Reason for Visit * Reason Comments Medication Refill Encounter Details Date Type Department Care Team (Late st Contact Info) Description 10/04/2024 Refill [facility] #2 [place] [phone] Mague Bermudez APRN, CPR AMBULANCE DRIVER #2 [place] [address] Medication Refill Social History Tobacco Use Types [...] Mona Hebert RN - 10/04/2024 9:05 AM HEEL EMERY BUFFER Medication [facility] and [facility] order for pediatric and adult patients. EMERY BUFFER documented in this encounter Plan of Treatment Upcoming Encounters Date Type Department Care Team (Late st Contact Info) Description 07/28/2025 3:00 PM HEEL EMERY BUFFER Office Visit [facility] [address]2 [place] [address] Germán Barrow MD 2 [facility] [address] [place] [address] documented as of this encounter Visit Diagnoses Diagnosis Gastroesophageal reflux disease, unspecified whether esophagitis present documented in this encounter Care Teams Finishing Frame Runner Relationship Specialty Start Date End Date Peace Pete MD PCP - General Family Medicine 04/27/18 Mague Bermudez APRN, CPR AMBULANCE DRIVER [address] [place] [address] Nurse Practitioner Advanced Practice Nurse 02/14/23 Herminio Jj MD #2 [facility] [address] [place] [address] Consulting Physician Colon and Rectal Surgery 02/13/24 documented as of this encounter
--- OUTSIDE RECORDS SUMMARY | 2025-04-17 08:29 | XMS_ITS | Encounter Summary ---
Author Organization [facility] Address [address] [place] [address] Phone Care Team Providers Care Hackler Doll Wigs Name Role Phone Peace Pete MD Primary Care Provider [phone] Mague Bermudez APRN, ORTHOPEDIC NURSE Unavailable Herminio Jj MD Unavailable Reason for Visit * Reason Comments Medication Refill Encounter Details Date Type Department Care Team (Late st Contact Info) Description 08/02/2023 Refill [facility] #2 [place] [phone] Mague Bermudez APRN, ORTHOPEDIC NURSE [address]2 [place] [address] Medication Refill Social History Tobacco Use Types [...] Mona Hebert RN - 08/04/2023 6:40 PM HOSE OPERATOR Medication failed the protocol, provider to [...] Visit Mague Bermudez APRN, CNP [facility] [place] 02/14/23 Office Visit Mague Bermudez APRN, CNP [facility] [place] Showing recent visits within past 365 days and meeting all other requirements Future Appointments No visits were found meeting these conditions. Showing future appointments within next 90 days and meeting all other requirements OPERATOR documented in this encounter Plan of Treatment Upcoming Encounters Date Type Department Care Team (Late st Contact Info) Description 07/28/2025 3:00 PM HOSE OPERATOR Office Visit [facility] - [place] #2 [place] [address] Germán Barrow MD [address] [address] documented as of this encounter Visit Diagnoses Not on filedocumented in this encounter Care Teams Hackler Doll Wigs Relationship Specialty Start Date End Date Peace Pete MD PCP - General Family Medicine 04/27/18 Mague Bermudez APRN, JOSEPH [address] [place] [address] Nurse Practitioner Advanced Practice Nurse 02/14/23 Herminio Jj MD #2 [place] [address] Consulting Physician Colon and Rectal Surgery 02/13/24 documented as of this encounter
--- OUTSIDE RECORDS SUMMARY | 2025-04-17 08:29 | XMS_ITS | Encounter Summary ---
Author Organization [facility] Address [address] [place] [address] Phone Care Team Providers Care Agency Recruiter Name Role Phone Peace Pete MD Primary Care Provider [phone] Mague Bermudez APRN, HVAC MANAGER Unavailable Herminio Jj MD Unavailable Reason for Visit * Reason Comments Medication Refill Encounter Details Date Type Department Care Team (Late Contact Info) Description 03/28/2025 Refill [facility] #2 [place] [address] Mague Bermudez APRN, HVAC MANAGER [address] [place] [address] Medication Refill Social History Tobacco Use Types [...] st Contact Info) Description 07/28/2025 3:00 PM RIVER CROSSING SUPERVISOR Office Visit [facility] #2 [place] [address] Germán Barrow MD 2 [facility] [address] [place] [address] documented as of this encounter Visit Diagnoses Diagnosis Gastroesophageal reflux disease, unspecified whether esophagitis present documented in this encounter Care Teams Agency Recruiter Relationship Specialty Start Date End Date Peace Pete MD PCP - General Family Medicine 04/27/18 Mague Bermudez APRN, HVAC MANAGER [address] [place] [address] Nurse Practitioner Advanced Practice Nurse 02/14/23 Herminio Jj MD #2 [facility] [address] [place] [address] Consulting Physician Colon and Rectal Surgery 02/13/24 documented as of this encounter
--- OUTSIDE RECORDS SUMMARY | 2025-04-17 08:29 | XMS_ITS | Clinical Summary ---
Author Organization [facility] Address [address] [address] Phone Care Team Providers Care Room Service Food Service Attendant Name Role Phone Peace Pete MD Primary Care Provider [phone] Mague Bermudez APRN, KNOWLEDGE MANAGER Unavailable Herminio Jj MD Unavailable Allergies Active [...] Tablet by mouth every morning. 025 Active [id number]-[id number] ethyl esters 1 g Capsule 025 Active [...] 08/20 Overview (02/28/2020): Last Assessment & Plan: Dorinda helped mostly for his constipation but has been taking once daily, recommend to increase up to 3 times daily as needed Add bentyl prn He could not afford linzess rtc 6-8 months Encounters Date Type Department Care Team Description 04/15/2025 3:00 PM CDT [facility] #2 [place] [phone] Mague Bermudez APRN, CNP Gastroesophageal reflux disease, unspecified whether esophagitis present (Primary Dx); Hemorrhoids, unspecified hemorrhoid type; LLQ pain Discharge Disposition: Discharged to home or Selfcare 04/13/2025 Travel 04/05/2025 [facility] #2 [place] [phone] Mague Bermudez APRN, CNP Medication Refill 04/03/2025 [facility]ill [facility] #2 [place] [address] Mague Bermudez APRN, CNP Medication Refill 03/28/2025 Refill [facility] #2 [place] [address] Mague Bermudez APRN, CNP Medication Refill 01/22[facility] [facility]2 [place] [address] Mague Bermudez APRN, CNP Medication Refill from Last 3 Months Immunizations Immunization Administration Dates Next Due Influenza Vaccine, Quadrivalent, PF 11/0 03/2021,06/15/2020,06/14/2020,05/19,08/12/2018 Pneumococcal conjugate PCV20 , polysaccharide [id number] conjugate, adjuvant, PF 03/10/2022 Td Vaccine (preservative [...] st Contact Info) Description 07/28/2025 3:00 PM SALES DEVELOPMENT EXECUTIVE Office Visit [facility] - [facility] - [place] [address] [place] [address] Germán Barrow MD [address] [facility] [address] Health Maintenance Due Date Last Done Comments [...] Recently Relevant to Health Maintenance Insurance MEDICAID [place] Care Teams Room Service Food Service Attendant Relationship Specialty Start Date End Date Peace Pete MD PCP - General Family Medicine 04/27/18 Mague Bermudez APRN, KNOWLEDGE MANAGER #2 [place] [address] Nurse Practitioner Advanced Practice Nurse 02/14/23 Herminio Jj MD #[address] [address] Consulting Physician Colon and Rectal Surgery 02/13/24
--- OUTSIDE RECORDS SUMMARY | 2025-04-17 08:29 | XMS_ITS | Encounter Summary ---
Author Organization [facility] Address [address] [place] [address] Phone Care Team Providers Care Guitar Repair Technician Name Role Phone Peace Pete MD Primary Care Provider [phone] Mague Bermudez APRN, LPN INSTRUCTOR Unavailable Herminio Jj MD Unavailable Reason for Visit * Reason Comments Medication Refill Encounter Details Date Type Department Care Team (Late st Contact Info) Description 05/07/2022 Refill [facility] #2 [place] [phone] Vianney Sauer MD #2 [place] [address] Medication Refill Social History Tobacco Use Types [...] st Contact Info) Description 07/28/2025 3:00 PM HOG MAN Office Visit [facility] - [facility] #2 [place] [address] Germán Barrow MD 2 [facility] [address] [place] [address] documented as of this encounter Visit Diagnoses Not on filedocumented in this encounter Care Teams Guitar Repair Technician Relationship Specialty Start Date End Date Peace Pete MD PCP - General Family Medicine 04/27/18 Mague Bermudez APRN, LPN INSTRUCTOR #2 [place] [address] Nurse Practitioner Advanced Practice Nurse 02/14/23 Herminio Jj MD #2 [facility] [address] [place] [address] Consulting Physician Colon and Rectal Surgery 02/13/24 documented as of this encounter
--- OUTSIDE RECORDS SUMMARY | 2025-04-17 08:29 | XMS_ITS | Encounter Summary ---
Author Organization [facility] Address [address] [place] [address] Phone Care Team Providers Care Manager Intern Name Role Phone Peace Pete MD Primary Care Provider +1 [phone] Mague Bermudez APRN, PATIENT REGISTRATION SPECIALIST Unavailable Herminio Jj MD Unavailable Reason for Visit * Reason Comments Medication Refill Encounter Details Date Type Department Care Team (Late st Contact Info) Description 10/22/2023 [facility]ill [facility] #2 [place] [phone] Mague Bermudez APRN, PATIENT REGISTRATION SPECIALIST #2 [place] [address] Medication Refill Social History Tobacco Use Types [...] Mona Hebert RN - 10/23/2023 8:45 AM BACK STAYER Medication failed the protocol, provider to review [...] 02/14/23 Office Visit Mague Bermudez APRN, CNP [facility] [place] Showing recent visits within past 365 days and meeting all other requirements Future Appointments No visits were found meeting these conditions. Showing future appointments within next 90 days and meeting all other requirements STAYER documented in this encounter Plan of Treatment Upcoming Encounters Date Type Department Care Team (Late st Contact Info) Description 07/28/2025 3:00 PM BACK STAYER Office Visit [facility] - [place] #2 [place] [address] Germán Barrow MD [address] [address] documented as of this encounter Visit Diagnoses Not on filedocumented in this encounter Care Teams Manager Intern Relationship Specialty Start Date End Date Peace Pete MD PCP - General Family Medicine 04/27/18 Mague Bermudez APRN, JOSEPH #2 [place] [address] Nurse Practitioner Advanced Practice Nurse 02/14/23 Herminio Jj MD #2 [place] [address] Consulting Physician Colon and Rectal Surgery 02/13/24 documented as of this encounter
--- OUTSIDE RECORDS SUMMARY | 2025-04-17 08:29 | XMS_ITS | Encounter Summary ---
Author Organization [facility] Address [address] [place] [address] Phone Care Team Providers Care Transplant Worker Name Role Phone Peace Pete MD Primary Care Provider +1 [phone] Mague Bermudez APRN, SUPERVISOR PREPRESS Unavailable Herminio Jj MD Unavailable Reason for Visit * Reason Comments Medication Refill Encounter Details Date Type Department Care Team (Late st Contact Info) Description 01/19/2024 Refill [facility] [place] [phone] Mague Bermudez, MARCIN, SUPERVISOR PREPRESS #2 [place] [address] Medication Refill Social History Tobacco Use Types [...] 01/19/2024 9:18 AM CDT Received fax from [facility] pharmacy that the Hydrocortisone AC 25 mg [...] 01/14/24 Office Visit Mague Bermudez APRN, JOSEPH [facility] [place] 04/01/23 Office Visit Mague Bermudez APRN, CNP [facility] 02/14/23 Office Visit Mague Bermudez APRN, JOSEPH [facility] [place] Showing recent visits within past 365 days and meeting all other requirements Future Appointments No visits were found meeting these conditions. Showing future appointments within next 90 days and meeting all other requirements documented in this encounter Plan of Treatment Upcoming Encounters Date Type Department Care Team (Late st Contact Info) Description 07/28/2025 3:00 PM HAT LINING PASTER [facility] Visit [facility] [place] #2 [place] [address] Germán Barrow MD 2 [facility] [address] [address] documented as of this encounter Visit Diagnoses Not on filedocumented in this encounter Care Teams Transplant Worker Relationship Specialty Start Date End Date Peace Pete MD PCP - General Family Medicine 04/27/18 Mague Bermudez APRN, SUPERVISOR PREPRESS #2 [place] [address] Nurse Practitioner Advanced Practice Nurse 02/14/23 Herminio Jj MD #[address] [address] Consulting Physician Colon and Rectal Surgery 02/13/24 documented as of this encounter
--- OUTSIDE RECORDS SUMMARY | 2025-04-17 08:29 | XMS_ITS | Encounter Summary ---
Author Organization [facility] Address [address] [place] [address] Phone Care Team Providers Care Oyster Harvester Name Role Phone Peace Pete MD Primary Care Provider +1 [phone] Mague Bermudez APRN, ADMINISTRATIVE OFFICE SPECIALIST Unavailable Herminio Jj MD Unavailable Reason for Visit * Reason Comments Medication Refill Encounter Details Date Type Department Care Team (Late st Contact Info) Description 07/25/2022 Refill [facility] #2 [place] [phone] Vianney Sauer MD #2 [place] [address] Medication Refill Social History Tobacco Use Types [...] pended. Please sign if you agree. OR MATERIALS SCIENTIST documented in this encounter Plan of Treatment Upcoming Encounters Date Type Department Care Team (Late st Contact Info) Description 07/28/2025 3:00 PM SENIOR MATERIALS SCIENTIST Office Visit [facility] #2 [place] [address] Germán Barrow MD [address] [facility] [address] [place] [address] documented as of this encounter Visit Diagnoses Not on filedocumented in this encounter Care Teams Oyster Harvester Relationship Specialty Start Date End Date Peace Pete MD PCP - General Family Medicine 04/27/18 Mague Bermudez APRN, ADMINISTRATIVE OFFICE SPECIALIST #2 [place] [address] Nurse Practitioner Advanced Practice Nurse 02/14/23 Herminio Jj MD #2 [facility] [address] [place] [address] Consulting Physician Colon and Rectal Surgery 02/13/24 documented as of this encounter
--- OUTSIDE RECORDS SUMMARY | 2025-04-17 08:29 | XMS_ITS | Encounter Summary ---
Author Organization [facility] Address [address] [place] [address] Phone Care Team Providers Care Lock And Dam Equipment Repairer Name Role Phone Peace Pete MD Primary Care Provider +1 [phone] Mague Bermudez APRN, BRIDGE OPERATOR SLIP Unavailable Herminio Jj MD Unavailable Reason for Visit * Reason Comments Medication Refill Encounter Details Date Type Department Care Team (Late st Contact Info) Description 12/29/2024 Refill [facility] #2 [place] [phone] Mague Bermudez APRN, BRIDGE OPERATOR SLIP #2 [place] [address] Medication Refill Social History Tobacco Use Types [...] AM CDT Medication [facility] and [facility] order for pediatric and adult patients. documented in this encounter Plan of Treatment Upcoming Encounters Date Type Department Care Team (Late st Contact Info) Description 07/28/2025 3:00 PM BOTTOM BUFFER Office Visit [facility] - Gastroenterology [facility] #2 [place] [address] Germán Barrow MD 2 [facility] [address] [place] [address] documented as of this encounter Visit Diagnoses Diagnosis Gastroesophageal reflux disease, unspecified whether esophagitis present documented in this encounter Care Teams Lock And Dam Equipment Repairer Relationship Specialty Start Date End Date Peace Pete MD PCP - General Family Medicine 04/27/18 Mague Bermudez APRN, BRIDGE OPERATOR SLIP #2 [place] [address] Nurse Practitioner Advanced Practice Nurse 02/14/23 Herminio Jj MD #2 [facility] [address] [place] [address] Consulting Physician Colon and Rectal Surgery 02/13/24 documented as of this encounter
--- OUTSIDE RECORDS SUMMARY | 2025-04-17 08:29 | XMS_ITS | Encounter Summary ---
Author Organization [facility] Address [address] [place] [address] Phone Care Team Providers Care Sales Estimator Name Role Phone Peace Pete MD Primary Care Provider [phone] [phone] Mague Bermudez APRN, GRAPHIC PRE PRESS TRADES WORKER Unavailable Herminio Jj MD Unavailable Reason for Visit * Reason Comments Medication Refill Encounter Details Date Type Department Care Team (Late st Contact Info) Description 09/29/2023 Refill [facility] #2 [place] [phone] Mague Bermudez APRN, GRAPHIC PRE PRESS TRADES WORKER #2 [place] [address] Medication Refill Social History Tobacco Use Types [...] Mona Hebert RN - 10/02/2023 4:07 PM SOFTWARE PROJECT ENGINEER Spoke with patient, he is no longer taking pantoprazole and famotidine. He is asking for a refill of the omeprazole. Order pended, please review pended order. WARE PROJECT ENGINEER * Telephone Encounter - Mona Hebert RN - 10/02/2023 8:58 AM SOFTWARE PROJECT ENGINEER Left message to call back. Pantoprazole order noted to be placed by Ferny Bermudez NP on 04/01/2023. WARE PROJECT ENGINEER * Telephone Encounter - Mona Hebert RN - 10/02/2023 8:54 AM SOFTWARE PROJECT ENGINEER Pharmacy requesting refill of: Requested Prescriptions Pending [...] discontinued on 04/01/2023 by Mague Bermudez APRN, GRAPHIC PRE PRESS TRADES WORKER for thefollowing reason: Alternate therapy. Renewing this prescription may not be appropriate Patients last OV with GI: 04/01/2023 Next Office Visit with GI: None scheduled, recall noted. WARE PROJECT ENGINEER documented in this encounter Plan of Treatment Upcoming Encounters Date Type Department Care Team (Late st Contact Info) Description 07/28/2025 3:00 PM SOFTWARE PROJECT ENGINEER [facility] Visit [facility] #2 [place] [address] Germán Barrow MD [address] [address] documented as of this encounter Visit Diagnoses Diagnosis Gastroesophageal reflux disease, unspecified whether esophagitis present documented in this encounter Care Teams Sales Estimator Relationship Specialty Start Date End Date Peace Pete MD PCP - General Family Medicine 04/27/18 Mague Bermudez APRN, GRAPHIC PRE PRESS TRADES WORKER #2 [place] [address] Nurse Practitioner Advanced Practice Nurse 02/14/23 Herminio Jj MD #[address] [address] Consulting Physician Colon and Rectal Surgery 02/13/24 documented as of this encounter
--- OUTSIDE RECORDS SUMMARY | 2025-04-17 08:29 | XMS_ITS | Clinical Summary ---
Author Organization [facility] Address [address] [place] [address] Care Team Providers Care Reciprocating Drill Operator Name Role Phone Julio Pete MD Primary Care Provider [phone] Source Comments [facility],non-owned Affiliates and Associated Physician Practices is amultiple site organization consisting of ambulatory clinics and hospital sitesin [place], [place], [place] and [place]. This disclosure is being madepursuant to the Care Everywhere program and may not contain all information available regarding this patient. Last updated 18.[facility] Social History Tobacco Use Types Packs/Day Years Used Date Smoking Tobacco: Never Assessed Sex and Gender Information Value Date Recorded Sex Assigned at Not on file Legal Sex Male 5:38 AM SUCCESSFACTORS CONSULTANT Gender Identity Not on file Sexual Orientation [...] patient's age to complete this topic Insurance [facility] Care Teams Reciprocating Drill Operator Relationship Specialty Start Date End Date Julio Pete MD [address] [place] [phone] PCP - General 09/10/18
--- OUTSIDE RECORDS SUMMARY | 2025-04-17 08:29 | XMS_ITS | Encounter Summary ---
Author Organization [facility] Address [address] [place] [address] Phone Care Team Providers Care Bean Sprout Laborer Name Role Phone Peace Pete MD Primary Care Provider [phone] [phone] Mague Bermudez APRN, WATCH BAND ASSEMBLER Unavailable Herminio Jj MD Unavailable Reason for Visit * Reason Comments Medication Refill Encounter Details Date Type Department Care Team (Late st Contact Info) Description 05/04/2023 Refill [facility] #2 [place] [address] Vianney Sauer MD #2 [place] [address] Medication Refill Social History Tobacco Use Types [...] 02/14/23 Office Visit Mague Bermudez APRN, JOSEPH [facility] Gastro [place] Showing recent visits within past 365 days and meeting all other requirements Future Appointments No visits were found meeting these conditions. Showing future appointments within next 90 days and meeting all other requirements documented in this encounter Plan of Treatment Upcoming Encounters Date Type Department Care Team (Late st Contact Info) Description 07/28/2025 3:00 PM CENTER LEAD CONSULTANT [facility] Visit [facility] - [place] #2 [place] [address] Germán Barrow MD [address] [address] documented as of this encounter Visit Diagnoses Not on filedocumented in this encounter Care Teams Bean Sprout Laborer Relationship Specialty Start Date End Date Peace Pete MD PCP - General Family Medicine 04/27/18 Mague Bermudez APRN, CNP #2 [place] [address] Nurse Practitioner Advanced Practice Nurse 6/30/23 Herminio Jj MD #2 [place] [address] Consulting Physician Colon and Rectal Surgery 02/13/24 documented as of this encounter
[2025-04-17 10:54] VITALS: BP 129/81; PULSE 94; RESP 16; TEMP 36.6; O2SAT 97
== END 2025-04-17 10:55 | disposition home or self-care (01) ==
PROVIDERS: Emergency Provider Emergency Medicine; PCP Family Medicine
DX: R09.A2 Foreign body sensation, throat (principal); I10 Essential (primary) hypertension
CPT/HCPCS: 70490; 99284

== ENCOUNTER 2025-05-19 14:29 | Outpatient (CLI) | payer OTHER, SELFPAY ==
--- OUTSIDE RECORDS SUMMARY | 2025-05-19 14:32 | XMS_ITS | Encounter Summary ---
Author Organization [facility] Address [address] [place] [address] Phone Care Team Providers Care Photographer Finish Name Role Phone Peace Pete MD Primary Care Provider [phone] [phone] Mague Bermudez APRN, FLOOR COVERING CONTRACTOR Unavailable Herminio Jj MD Unavailable Reason for Visit * Reason Comments Medication Refill Encounter Details Date Type Department Care Team (Late st Contact Info) Description 12/29/2024 Refill [facility] - Gastroenterology [facility] #2 [place] [address] Mague Bermudez APRN, FLOOR COVERING CONTRACTOR [address] [place] [address] Medication Refill Social History Tobacco Use Types [...] AM CDT Medication refilled and signed [facility] chronic medication standing order for pediatric and adult patients. documented in this encounter Plan of Treatment Upcoming Encounters Date Type Department Care Team (Late st Contact Info) Description 08/01/2025 3:00 PM BLUE SPLIT TRIMMER Office Visit [facility] - Gastroenterology [facility] #2 [place] [address] Germán Barrow MD 2 [facility] [address] [place] [address] documented as of this encounter Visit Diagnoses Diagnosis Gastroesophageal reflux disease, unspecified whether esophagitis present documented in this encounter Care Teams Photographer Finish Relationship Specialty Start Date End Date Peace Pete MD PCP - General Family Medicine 04/27/18 Mague Bermudez APRN, FLOOR COVERING CONTRACTOR #2 [place] [address] Nurse Practitioner Advanced Practice Nurse 02/14/23 Herminio Jj MD #2 [facility] [address] [place] [address] Consulting Physician Colon and Rectal Surgery 02/13/24 documented as of this encounter
--- OUTSIDE RECORDS SUMMARY | 2025-05-19 14:32 | XMS_ITS | Clinical Summary ---
Author Organization [facility] Address [address] [address] Phone Care Team Providers Care Supervisor Carbon Paper Coating Name Role Phone Peaec Pete MD Primary Care Provider Mague Bermudez APRN, PRODUCTION LINE TECHNICIAN Unavailable Herminio Jj MD Unavailable Allergies Active [...] pain 1 Each 2 08/29/19 22 Active Additional Information Patient not taking.Reported on 04/15/2025 VITAMIN E PO Take by mouth. Ac tive other by Other route. IV guard Active Tradjenta 5 MG Tablet Take 5 mg by mouth every morning. 03/13/20 23 Active Hydrocortisone, Perianal, 2.5 % Cream APPLY RECTALLY DAILY NEEDED FOR HEMORRHOIDS 01/07/20 24 Active omeprazole (PriLOSEC) 20 MG CAPSULE DELAYED RELEASEIndicati ons:Gastroesoph ageal reflux disease, unspecified whether esophagitis present TAKE 2 CAPSULES BY MOUTH EVERY DAY 60 Capsule 2 04/07/20 25 Active Glyxambi 25-5 MG Tablet Take 1 Tablet by mouth every morning. 04/04/20 25 Active emnqs-2-ystc ethyl esters 1 g Capsule 04/15/20 25 Active sucralfate (CARAFATE) 1 GM TabletIndicatio ns:Gastroesopha geal reflux disease, unspecified whether esophagitis present Take 1 Tablet by mouth 3 times daily. Take one hour before meals and at bedtime 90 Tablet 04/15/20 25 Active hydrocortisone (ANUSOL-HC) 25 MG SuppositoryIndi cations:Hemorrh oids, unspecified hemorrhoid type 25 mg by Rectal route every 12 hours. 30 Suppository 04/15/20 25 Active amitriptyline (ELAVIL) 10 MG TabletIndicatio ns:LLQ pain Take 1 Tablet by mouth nightly. 90 Tablet 3 04/15/20 25 Active Active Problems Problem Noted Date Diagnosed [...] Description 04/15/2025 3:00 PM CDT [facility] [place] [address] Mague Bermudez APRN, JOSEPH Gastroesophageal reflux disease, unspecified whether esophagitis present (Primary Dx); Hemorrhoids, unspecified hemorrhoid type; LLQ pain Discharge Disposition: Discharged to home or Selfcare 04/13/2025 Travel 04/05/2025 [facility] [place] [address] Mague Bermudez APRN, CNP Medication Refill 04/03/2025 [facility]2 [place] [address] Mague Bermudez APRN, JOSEPH Medication Refill 03/28/2025 [facility] [place] [address] Mague Bermudez APRN, JOSEPH Medication Refill from Last 3 Months Immunizations Immunization Administration Dates Next Due Influenza Vaccine, Quadrivalent, PF 11/0 03/2021,06/15/2020,06/14/2020,05/19,08/12/2018 Pneumococcal conjugate PCV20 , polysaccharide [id number] conjugate, adjuvant, PF 03/10/2022 Td Vaccine (preservative [...] st Contact Info) Description 08/01/2025 3:00 PM PROFESSOR OF SOCIOLOGY Office Visit [facility] - Gastro[facility] #2 [place] [address] Germán Barrow MD [address] [address] Health Maintenance Due Date Last Done Comments [...] Health Maintenance Insurance MEDICAID [place] Care Teams Supervisor Carbon Paper Coating Relationship Specialty Start Date End Date Peace Pete MD PCP - General Family Medicine 04/27/18 Mague Bermudez APRN, PRODUCTION LINE TECHNICIAN #2 [place] [address] Nurse Practitioner Advanced Practice Nurse 02/14/23 Herminio Jj MD #[address] [address] Consulting Physician Colon and Rectal Surgery 02/13/24
--- OUTSIDE RECORDS SUMMARY | 2025-05-19 14:32 | XMS_ITS | Encounter Summary ---
Author Organization [facility] Address [address] [place] [address] Phone Care Team Providers Care Instrumentation Manager Name Role Phone Peace Pete MD Primary Care Provider [phone] [phone] Mague Bermudez APRN, CATERING MANAGER Unavailable Herminio Jj MD Unavailable Reason for Visit * Reason Comments Medication Refill Encounter Details Date Type Department Care Team (Late st Contact Info) Description 02/07/2022 Refill [facility] #2 [place] [address] Vianney Sauer MD #2 [place] [address] Medication Refill Social History Tobacco Use Types [...] st Contact Info) Description 08/01/2025 3:00 PM MACHINE TECHNICIAN Office Visit [facility] - Gastroenterology [facility] #2 [place] [address] Germán Barrow MD 2 [facility] [address] [place] [address] documented as of this encounter Visit Diagnoses Not on filedocumented in this encounter Care Teams Instrumentation Manager Relationship Specialty Start Date End Date Peace Pete MD PCP - General Family Medicine 04/27/18 Mague Bermudez APRN, CATERING MANAGER #2 [place] [address] Nurse Practitioner Advanced Practice Nurse 02/14/23 Herminio Jj MD #2 [facility] [address] [place] [address] Consulting Physician Colon and Rectal Surgery 02/13/24 documented as of this encounter
--- OUTSIDE RECORDS SUMMARY | 2025-05-19 14:32 | XMS_ITS | Clinical Summary ---
Author Organization [facility] Address [address] [place] [address] Care Team Providers Care Microsoft Infrastructure Consultant Name Role Phone Julio Pete MD Primary Care Provider [phone]- [phone] Source Comments [facility] [employer],non-owned Affiliates and Associated Physician Practices is amultiple site organization consisting of ambulatory clinics and hospital sitesin [place], [place], [place] and [place]. This disclosure is being madepursuant to the Care Everywhere program and may not contain all information available regarding this patient. Last updated 18.[facility] [employer] Social History Tobacco Use Types Packs/Day Years Used Date Smoking Tobacco: Never Assessed Sex and Gender Information Value Date Recorded Sex Assigned at Not on file Legal Sex Male 5:38 AM CONSTRUCTION CONTROLLER Gender Identity Not on file Sexual Orientation Not on file Plan of Treatment Health Maintenance Due Date Last Done Comments HIV SCREENING 12/15/2003 HEPATITIS C SCREENING 12/10/2006 DTAP/TDAP/TD VACCINES (1 - Tdap) 12/15/2007 HEPATITIS B VACCINE (1 of 3 - 19+ 3-dose series) 12/15/2007 HPV VACCINE (1 - 3-dose SCDM series) 12/15/2015 DEPRESSION SCREENING 08/18/2024 COVID-19 VACCINE ( - 2023-2 5 season) 2025 INFLUENZA VACCINE (#1) 2025 ZOSTER VACCINE (1 [...] patient's age to complete this topic Insurance [facility] Care Teams Microsoft Infrastructure Consultant Relationship Specialty Start Date End Date Julio Pete MD [address] [place] [id number] PCP - General 09/10/18
--- OUTSIDE RECORDS SUMMARY | 2025-05-19 14:32 | XMS_ITS | Encounter Summary ---
Author Organization [facility] Address [address] [place] [address] Phone Care Team Providers Care Call Center Operator Name Role Phone Peace Pete MD Primary Care Provider +1 [phone] Mague Bermudez APRN, FOOD PRODUCT INSPECTOR Unavailable Herminio Jj MD Unavailable Reason for Visit * Reason Comments Medication Refill Encounter Details Date Type Department Care Team (Late st Contact Info) Description 07/25/2022 [facility]ill [facility] #2 [place] [address] Vianney Sauer MD #2 [place] [address] Medication Refill Social History Tobacco Use Types [...] Refill pended. Please sign if you agree. LITY MAINTENANCE SUPERVISOR documented in this encounter Plan of Treatment Upcoming Encounters Date Type Department Care Team (Late st Contact Info) Description 08/01/2025 3:00 PM FACILITY MAINTENANCE SUPERVISOR Office Visit [facility] #2 [place] [address] Germán Barrow MD 2 [facility] [address] [place] [address] documented as of this encounter Visit Diagnoses Not on filedocumented in this encounter Care Teams Call Center Operator Relationship Specialty Start Date End Date Peace Pete MD PCP - General Family Medicine 04/27/18 Mague Bermudez APRN, FOOD PRODUCT INSPECTOR #2 [place] [address] Nurse Practitioner Advanced Practice Nurse 02/14/23 Herminio Jj MD #2 [facility] [address] [place] [address] Consulting Physician Colon and Rectal Surgery 02/13/24 documented as of this encounter
--- OUTSIDE RECORDS SUMMARY | 2025-05-19 14:32 | XMS_ITS | Encounter Summary ---
Author Organization [facility] Address [address] [place] [address] Phone Care Team Providers Care Pediatrics Physician Name Role Phone Peace Pete MD Primary Care Provider +1 [phone] Mague Bermudez APRN, BLANCHARD GRINDER OPERATOR Unavailable Herminio Jj MD Unavailable Reason for Visit * Reason Comments Medication Refill Encounter Details Date Type Department Care Team (Late st Contact Info) Description 05/04/2023 Refill [facility] #2 [place] [phone] Vianney Sauer MD #2 [place] [address] Medication Refill Social History Tobacco Use Types [...] 02/14/23 Office Visit Mague Bermudez APRN, JOSEPH [facility] [place] Showing recent visits within past 365 days and meeting all other requirements Future Appointments No visits were found meeting these conditions. Showing future appointments within next 90 days and meeting all other requirements documented in this encounter Plan of Treatment Upcoming Encounters Date Type Department Care Team (Late st Contact Info) Description 08/01/2025 3:00 PM CRAB PICKER Office Visit [facility] - [place] #2 [place] [address] Germán Barrow MD [address] [address] documented as of this encounter Visit Diagnoses Not on filedocumented in this encounter Care Teams Pediatrics Physician Relationship Specialty Start Date End Date Peace Pete MD PCP - General Family Medicine 04/27/18 Mague Bermudez APRN, CNP #2 [place] [address] Nurse Practitioner Advanced Practice Nurse 6/30/23 Herminio Jj MD #2 [place] [address] Consulting Physician Colon and Rectal Surgery 02/13/24 documented as of this encounter
--- OUTSIDE RECORDS SUMMARY | 2025-05-19 14:32 | XMS_ITS | Encounter Summary ---
Author Organization [facility] Address [address] [place] [address] Phone Care Team Providers Care Test Automation Architect Name Role Phone Peace Pete MD Primary Care Provider +1 [phone] Mague Bermudez APRN, DISTRICT CAPTAIN Unavailable Herminio Jj MD Unavailable Reason for Visit * Reason Comments Medication Refill Encounter Details Date Type Department Care Team (Late st Contact Info) Description 09/29/2023 Refill [facility] - Gastroenterology [facility] #2 [place] [address] Mague Bermudez APRN, DISTRICT CAPTAIN [address] [place] [address] Medication Refill Social History Tobacco Use Types [...] Mona Hebert RN - 10/02/2023 4:07 PM DRUG CLERK Spoke with patient, he is no longer taking pantoprazole and famotidine. He is asking for a refill of the omeprazole. Order pended, please review pended order. CLERK * Telephone Encounter - Mona Hebert RN - 10/02/2023 8:58 AM DRUG CLERK Left message to call back. Pantoprazole order noted to be placed by Ferny Bermudez NP on 04/01/2023. CLERK * Telephone Encounter - Mona Hebert RN - 10/02/2023 8:54 AM DRUG CLERK Pharmacy requesting refill of: Requested Prescriptions Pending [...] discontinued on 04/01/2023 by Mague Bermudez APRN, DISTRICT CAPTAIN for thefollowing reason: Alternate therapy. Renewing this prescription may not be appropriate Patients last OV with GI: 04/01/2023 Next Office Visit with GI: None scheduled, recall noted. CLERK documented in this encounter Plan of Treatment Upcoming Encounters Date Type Department Care Team (Late st Contact Info) Description 08/01/2025 3:00 PM DRUG CLERK Office Visit [facility] #2 [place] [address] Germán Barrow MD 2 [facility] [address] [address] documented as of this encounter Visit Diagnoses Diagnosis Gastroesophageal reflux disease, unspecified whether esophagitis present documented in this encounter Care Teams Test Automation Architect Relationship Specialty Start Date End Date Peace Pete MD PCP - General Family Medicine 04/27/18 Mague Bermudez APRN, DISTRICT CAPTAIN #2 [place] [address] Nurse Practitioner Advanced Practice Nurse 02/14/23 Herminio Jj MD #[address] [address] Consulting Physician Colon and Rectal Surgery 02/13/24 documented as of this encounter
--- OUTSIDE RECORDS SUMMARY | 2025-05-19 14:32 | XMS_ITS | Encounter Summary ---
Author Organization [facility] Address [address] [place] [address] Phone Care Team Providers Care Packerhead Machine Operator Name Role Phone Peace Pete MD Primary Care Provider +1 [phone] Mague Bermudez APRN, TRAPPER BIRD Unavailable Herminio Jj MD Unavailable Reason for Visit * Reason Comments Medication Refill Encounter Details Date Type Department Care Team (Late st Contact Info) Description 01/19/2024 Refill [facility] #2 [place] [address] Mague Bermudez, LEAD BLENDER, TRAPPER BIRD [address] [place] [address] Medication Refill Social History Tobacco Use Types [...] 01/19/2024 9:18 AM CDT Received fax from [facility] pharmacy that the Hydrocortisone AC 25 mg [...] 01/14/24 Office Visit Mague Bermudez APRN, [facility] [place] 04/01/23 Office Visit Mague Bermudez APRN, CNP [facility] [place] 02/14/23 Office Visit Mague Bermudez APRN, JOSEPH [facility] [place] Showing recent visits within past 365 days and meeting all other requirements Future Appointments No visits were found meeting these conditions. Showing future appointments within next 90 days and meeting all other requirements documented in this encounter Plan of Treatment Upcoming Encounters Date Type Department Care Team (Late st Contact Info) Description 08/01/2025 3:00 PM TESTER OPERATOR Office Visit [facility] - [place] #2 [place] [address] Germán Barrow MD 2 [facility] [address] [address] documented as of this encounter Visit Diagnoses Not on filedocumented in this encounter Care Teams Packerhead Machine Operator Relationship Specialty Start Date End Date Peace Pete MD PCP - General Family Medicine 04/27/18 Mague Bermudez APRN, TRAPPER BIRD #2 [place] [address] Nurse Practitioner Advanced Practice Nurse 02/14/23 Herminio Jj MD #[address] [address] Consulting Physician Colon and Rectal Surgery 02/13/24 documented as of this encounter
--- OUTSIDE RECORDS SUMMARY | 2025-05-19 14:32 | XMS_ITS | Encounter Summary ---
Author Organization [facility] Address [address] [place] [address] Phone Care Team Providers Care Lens Fabricating Machine Tender Name Role Phone Peace Pete MD Primary Care Provider +1 [phone] Mague Bermudez APRN, PIPE INSTALLER Unavailable Herminio Jj MD Unavailable Reason for Visit * Reason Comments Medication Refill Encounter Details Date Type Department Care Team (Late st Contact Info) Description 05/07/2022 Refill [facility] #2 [place] [phone] Vianney Sauer MD #2 [place] [address] Medication Refill Social History Tobacco Use Types [...] st Contact Info) Description 08/01/2025 3:00 PM CANVAS WORKER Office Visit [facility] - Gastro[facility]2 [place] [address] Germán Barrow MD 2 [facility] [address] [place] [address] documented as of this encounter Visit Diagnoses Not on filedocumented in this encounter Care Teams Lens Fabricating Machine Tender Relationship Specialty Start Date End Date Peace Pete MD PCP - General Family Medicine 04/27/18 Mague Bermudez APRN, PIPE INSTALLER #2 [place] [address] Nurse Practitioner Advanced Practice Nurse 02/14/23 Herminio Jj MD #2 [facility] [address] [place] [address] Consulting Physician Colon and Rectal Surgery 02/13/24 documented as of this encounter
--- OUTSIDE RECORDS SUMMARY | 2025-05-19 14:32 | XMS_ITS | Encounter Summary ---
Author Organization [facility] Address [address] [place] [address] Phone Care Team Providers Care Business Functional Analyst Name Role Phone Peace Pete MD Primary Care Provider +1 [phone] Mague Bermudez APRN, DIRECTOR OCCUPATIONAL Unavailable Herminio Jj MD Unavailable Reason for Visit * Reason Comments Medication Refill Encounter Details Date Type Department Care Team (Late st Contact Info) Description 08/02/2023 Refill [facility] - Gastroenterology [facility] #2 [place] [address] Mague Bermudez APRN, DIRECTOR OCCUPATIONAL [address] [place] [address] Medication Refill Social History Tobacco Use Types [...] Miscellaneous Notes * Telephone Encounter - Mona Hebetr RN - 08/04/2023 6:40 PM BUSINESS INFORMATION ANALYST Medication failed the protocol, provider to review [...] 02/14/23 Office Visit Mague Bermudez APRN, CNP [facility]astro [place] Showing recent visits within past 365 days and meeting all other requirements Future Appointments No visits were found meeting these conditions. Showing future appointments within next 90 days and meeting all other requirements NESS INFORMATION ANALYST documented in this encounter Plan of Treatment Upcoming Encounters Date Type Department Care Team (Late st Contact Info) Description 08/01/2025 3:00 PM BUSINESS INFORMATION ANALYST Office Visit [facility] - [place] #2 [place] [address] Germán Barrow MD [address] [address] documented as of this encounter Visit Diagnoses Not on filedocumented in this encounter Care Teams Business Functional Analyst Relationship Specialty Start Date End Date Peace Pete MD PCP - General Family Medicine 04/27/18 Mague Bermudez APRN, JOSEPH #2 [place] [address] Nurse Practitioner Advanced Practice Nurse 02/14/23 Herminio Jj MD #2 [place] [address] Consulting Physician Colon and Rectal Surgery 02/13/24 documented as of this encounter
--- OUTSIDE RECORDS SUMMARY | 2025-05-19 14:32 | XMS_ITS | Encounter Summary ---
Author Organization [facility] Address [address] [place] [address] Phone Care Team Providers Care Solar Technician Name Role Phone Peace Pete MD Primary Care Provider +1 [phone] Mague Bermudez APRN, TOP LIFT SCOURER Unavailable Herminio Jj MD Unavailable Reason for Visit * Reason Comments Medication Refill Encounter Details Date Type Department Care Team (Late st Contact Info) Description 10/23/2022 Refill [facility] #2 [place] [address] Vianney Sauer MD #2 [place] [address] Medication Refill Social History Tobacco Use Types [...] Mona Hebert RN - 10/23/2022 10:12 AM HOSPITALIST MEDICAL DIRECTOR Pharmacy requesting refill of: Requested Prescriptions Pending Prescriptions Disp Refills ??? amitriptyline (ELAVIL) 10 MG Tablet [Pharmacy Med Name: AMITRIPTYLINE HCL 10 MG TAB] 90 Tablet 0 Sig: TAKE 1 TABLET BY MOUTH NIGHTLY Last fill: 07/26/2022 Patients last OV with GI: 04/10/2022 Next Office Visit with GI: None scheduled. Medication failed protocol, it cannot be delegated. Amitriptyline order pended, please review. ITALIST MEDICAL DIRECTOR documented in this encounter Plan of Treatment Upcoming Encounters Date Type Department Care Team (Late st Contact Info) Description 08/01/2025 3:00 PM HOSPITALIST MEDICAL DIRECTOR Office Visit [facility] - Gastroenterology [facility] #2 [place] [address] Germán Barrow MD 2 [facility] [address] [place] [address] documented as of this encounter Visit Diagnoses Not on filedocumented in this encounter Care Teams Solar Technician Relationship Specialty Start Date End Date Peace Pete MD PCP - General Family Medicine 04/27/18 Mague Bermudez APRN, TOP LIFT SCOURER #2 [place] [address] Nurse Practitioner Advanced Practice Nurse 02/14/23 Herminio Jj MD #2 [facility] [address] [place] [address] Consulting Physician Colon and Rectal Surgery 02/13/24 documented as of this encounter
--- OUTSIDE RECORDS SUMMARY | 2025-05-19 14:32 | XMS_ITS | Clinical Summary ---
Author Organization [facility] Address [address] [place] [address] Care Team Providers Care Dry Yard Worker Name Role Phone Peace Pete MD [...] 08/20/2017 Assessment & Plan (08/20/2017 11:27 AM BINDING STITCHER): Will given flagyl as empiric treatment for possible SIBO but most likely functional component Will add also bentyl as needed Irritable bowel syndrome 08/20/2017 Assessment & Plan (08/20/2017 11:29 AM BINDING STITCHER): Dorinda helped mostly for his constipation but has been taking once daily, recommend to increase up to 3 times daily as needed Add bentyl prn He could not afford linzess rtc 6-8 months Morbid obesity due to excess calories 08/20/2017 Assessment & Plan (08/20/2017 11:33 AM BINDING STITCHER): Encourage to lose weight Surgical History Surgery Date Site/Laterality Comments SINUS SURGERY Medical History Medical History Date Comments Anxiety Diabetes mellitus Hypertension Family History Medical History Relation Name [...] on file Legal Sex Male 3:17 AM BINDING STITCHER Gender Identity Not on file Sexual Orientation Not on file Obstetrics History Last Filed Vital Signs Vital Sign Reading Time Taken Comments Blood Pressure 122/68 08/20/2017 11:02 AM BINDING STITCHER Pulse 95 08/20/2017 11:02 AM BINDING STITCHER Temperature 37 C (98.6 F) 08/20/2017 11:02 AM BINDING STITCHER Respiratory Rate - - Oxygen Saturation - - Inhaled Oxygen Concentration - - Weight 140.2 kg (309 lb) 08/20/2017 11:02 AM BINDING STITCHER Height 175.3 cm (5' 9) 08/20/2017 11:02 AM BINDING STITCHER Body Mass Index 45.63 08/20/2017 11:02 AM BINDING STITCHER Plan of Treatment [place] [address] Care Teams Dry Yard Worker Relationship Specialty Start Date End Date Peace Pete MD PCP - General 12/11/16
--- OUTSIDE RECORDS SUMMARY | 2025-05-19 14:32 | XMS_ITS | Encounter Summary ---
Author Organization [facility] Address [address] [place] [address] Phone Care Team Providers Care Swing Tender Name Role Phone Peace Pete MD Primary Care Provider +1 [phone] Mague Bermudez APRN, RAIL OPERATOR Unavailable Herminio Jj MD Unavailable Reason for Visit * Reason Comments Medication Refill Encounter Details Date Type Department Care Team (Late st Contact Info) Description 01/23/2023 Refill [facility] #2 [place] [phone] Vianney Sauer MD #2 [place] [address] Medication Refill Social History Tobacco Use Types [...] 04/10/22 Office Visit Naila Courtney Gabbi, PAC [facility] [place] Showing recent visits within past 365 days and meeting all other requirements Future Appointments No visits were found meeting these conditions. Showing future appointments within next 90 days and meeting all other requirements documented in this encounter Plan of Treatment Upcoming Encounters Date Type Department Care Team (Late st Contact Info) Description 08/01/2025 3:00 PM MAINTENANCE DEPARTMENT TECHNICIAN Office Visit [facility] #2 [place] [address] Germán Barrow MD [address] [address] documented as of this encounter Visit Diagnoses Not on filedocumented in this encounter Care Teams Swing Tender Relationship Specialty Start Date End Date Peace Pete MD PCP - General Family Medicine 04/27/18 Mague Bermudez APRN, RAIL OPERATOR #2 [place] [address] Nurse Practitioner Advanced Practice Nurse 02/14/23 Herminio Jj MD [facility] [address] Consulting Physician Colon and Rectal Surgery 02/13/24 documented as of this encounter
--- OUTSIDE RECORDS SUMMARY | 2025-05-19 14:32 | XMS_ITS | Encounter Summary ---
Author Organization [facility] Address [address] [place] [address] Phone Care Team Providers Care Table Games Supervisor Name Role Phone Peace Pete MD Primary Care Provider [phone] Mague Bermudez APRN, GRINDER MILL OPERATOR Unavailable Herminio Jj MD Unavailable Reason for Visit * Reason Comments Medication Refill Encounter Details Date Type Department Care Team (Late st Contact Info) Description 10/22/2023 Refill [facility] - Gastroenterology [facility] #2 [place] [address] Mague Bermudez APRN, GRINDER MILL OPERATOR [address] [place] [address] Medication Refill Social History Tobacco Use Types [...] Mona Hebert RN - 10/23/2023 8:45 AM TRUCK MECHANIC Medication failed the protocol, provider to review [...] Mague Bermudez APRN, CNP [facility] [place] 02/14/23 Office Visit Mague Bermudez APRN, CNP [facility] [place] Showing recent visits within past 365 days and meeting all other requirements Future Appointments No visits were found meeting these conditions. Showing future appointments within next 90 days and meeting all other requirements K MECHANIC documented in this encounter Plan of Treatment Upcoming Encounters Date Type Department Care Team (Late st Contact Info) Description 08/01/2025 3:00 PM TRUCK MECHANIC Office Visit [facility] - [place] #2 [place] [address] Germán Barrow MD [address] [address] documented as of this encounter Visit Diagnoses Not on filedocumented in this encounter Care Teams Table Games Supervisor Relationship Specialty Start Date End Date Peace Pete MD PCP - General Family Medicine 04/27/18 Mague Bermudez APRN, JOSEPH #2 [place] [address] Nurse Practitioner Advanced Practice Nurse 02/14/23 Herminio Jj MD #2 [place] [address] Consulting Physician Colon and Rectal Surgery 02/13/24 documented as of this encounter
--- OUTSIDE RECORDS SUMMARY | 2025-05-19 14:32 | XMS_ITS | Encounter Summary ---
Author Organization [facility] Address [address] [place] [address] Phone Care Team Providers Care Stna Name Role Phone Peace Pete MD Primary Care Provider +1 [phone] Mague Bermudez APRN, LADLE CAR OPERATOR Unavailable Herminio Jj MD Unavailable Reason for Visit * Reason Comments Medication Refill Encounter Details Date Type Department Care Team (Late Contact Info) Description 03/28/2025 Refill [facility] #2 [place] [address] aMgue Bermudez, MARCIN, LADLE CAR OPERATOR [address] [place] [address] Medication Refill Social History Tobacco Use Types [...] Encounters Date Type Department Care Team (Late Contact Info) Description 08/01/2025 3:00 PM IP TECHNOLOGY TRANSACTIONS ATTORNEY Office Visit [facility] - Gastroenterology - [place] #2 [place] [address] Germán Barrow MD 2 [facility] [address] [place] [address] documented as of this encounter Visit Diagnoses Diagnosis Gastroesophageal reflux disease, unspecified whether esophagitis present documented in this encounter Care Teams Stna Relationship Specialty Start Date End Date Peace Pete MD PCP - General Family Medicine 04/27/18 Mague Bermudez APRN, LADLE CAR OPERATOR #2 [place] [address] Nurse Practitioner Advanced Practice Nurse 02/14/23 Herminio Jj MD #2 [facility] [address] [place] [address] Consulting Physician Colon and Rectal Surgery 02/13/24 documented as of this encounter
--- OUTSIDE RECORDS SUMMARY | 2025-05-19 14:32 | XMS_ITS | Encounter Summary ---
Author Organization [facility] Address [address] [place] [address] Phone Care Team Providers Care Speech Therapist Early Intervention Name Role Phone Peace Pete MD Primary Care Provider +1 [phone] Mague Bermudez APRN, BACK CLOSER Unavailable Herminio Jj MD Unavailable Reason for Visit * Reason Comments Medication Refill Encounter Details Date Type Department Care Team (Late st Contact Info) Description 10/04/2024 Refill [facility] - Gastroenterology [facility] #2 [place] [address] Mague Bermudez APRN, BACK CLOSER [address] [place] [address] Medication Refill Social History Tobacco Use Types [...] Mona Hebert RN - 10/04/2024 9:05 AM PSYCH COORDINATOR Medication refilled and signed per [facility] chronic medication standing order for pediatric and adult patients. H COORDINATOR documented in this encounter Plan of Treatment Upcoming Encounters Date Type Department Care Team (Late st Contact Info) Description 08/01/2025 3:00 PM PSYCH COORDINATOR Office Visit [facility] - Gastroenterology [facility] #2 [place] [address] Germán Barrow MD 2 [facility] [address] [place] [address] documented as of this encounter Visit Diagnoses Diagnosis Gastroesophageal reflux disease, unspecified whether esophagitis present documented in this encounter Care Teams Speech Therapist Early Intervention Relationship Specialty Start Date End Date Peace Pete MD PCP - General Family Medicine 04/27/18 Mague Bermudez APRN, BACK CLOSER #2 [place] [address] Nurse Practitioner Advanced Practice Nurse 02/14/23 Herminio Jj MD #2 [facility] [address] [place] [address] Consulting Physician Colon and Rectal Surgery 02/13/24 documented as of this encounter
[2025-05-19 14:48] LABS: Hemoglobin A1C 8.0 % (<5.7)
[2025-05-19 15:16] LABS: Alanine Aminotransferase 45 U/L (6-50); Albumin Level 4.7 g/dL (3.5-5.1); Alkaline Phosphatase 64 U/L (38-126); Anion Gap 12 mmol/L (4-12); Aspartate Amino Transferase 32 U/L (17-59); Bilirubin,Total 1.1 mg/dL (0.2-1.3); Blood Urea Nitrogen 9 mg/dL (9-20); Calcium 9.5 mg/dL (8.4-10.2); Carbon Dioxide 28 mmol/L (22-30); Chloride 101 mmol/L (98-107); Cholesterol 140 mg/dL (0-200); Estimated Glomerular Filt Rate > 60; Glucose 174 mg/dL (65-110); HDL Direct 28 mg/dL; Osmolality Calculated 294 mOsm/kg (285-295); Potassium 4.1 mmol/L (3.4-5.0); Sodium 141 mmol/L (137-145); Total Protein 7.9 g/dL (6.3-8.2); Triglycerides > 525 mg/dL (<150)
== END 2025-05-19 14:30 | disposition home or self-care (01) ==
LOC: CHSLAB 14:30
PROVIDERS: PCP Family Medicine; Visit Provider Family Medicine
DX: E11.9 Type 2 diabetes mellitus without complications (principal)
CPT/HCPCS: 36415; 80053; 80061; 83036